=== PATIENT | female | born 1950 | race Caucasian/White ===

== ENCOUNTER 2023-11-24 17:58 | Inpatient (IN) | payer OTHER ==
[2023-11-24 18:24] VITALS: BMI 34.2
[2023-11-24] MEDS ORDERED: ACYCLOVIR 1000 MG (50MG/ML) VIAL IVPB ONE (20:15)
[2023-11-24] MEDS: ACETAMINOPHEN 1000 MG/100 ML BAG IVPB ONE (20:20)
[2023-11-24] MEDS ORDERED: ACETAMINOPHEN INJECTION 100 ML IVPB ONE (20:22)
[2023-11-24 20:43] LABS: VENOUS BASE EXCESS -3.6 mmol/L (-2-2); VENOUS O2 SATURATION 34.1 % (70-80); VENOUS PCO2 35.6 mmHg (38-52); VENOUS PH 7.386 (7.310-7.410)
[2023-11-24] MEDS: PIPERACILLIN/TAZOB 4.5 GM 4.5 GM in DEXTROSE 5%-WATER 100 ML IVPB ONE (20:43)
[2023-11-24] MEDS ORDERED: PIPERACILLIN/TAZOB 4.5 GM 4.5 GM/100 ML BAG IVPB ONE (20:45)
[2023-11-24 20:57] LABS: HEMATOCRIT 33.6 % (32.4-45.2); HEMOGLOBIN 11.4 GM/dL (10.7-15.3); MCH 28.6 pg (25.7-33.7); MCHC 33.8 g/dl (32.0-36.0); MEAN CELL VOLUME 84.5 fl (80-96); MEAN PLT VOLUME 9.8 fl (7.5-11.1); PLATELET COUNT 127 10^3/uL (134-434); RBC 3.98 M/mm3 (3.60-5.2); RDW 15.3 % (11.6-15.6); WHITE BLOOD COUNT 10.2 K/mm3 (4.0-10.0)
[2023-11-24 21:04] LABS: INR 1.27 (0.83-1.09); PROTHROMBIN TIME (PATIENT) 14.7 SEC (9.7-13.0)
[2023-11-24 21:07] LABS: ACTIVATED PTT 30.9 SECONDS (25.2-36.5)
[2023-11-24 21:20] LABS: ALBUMIN 3.2 g/dl (3.4-5.0); BLOOD UREA NITROGEN 73.8 mg/dL (7-18); CALCIUM 8.5 mg/dL (8.5-10.1)
[2023-11-24 21:22] LABS: EPI CELLS 30 /uL (0-25.1); HYALINE CASTS 0 /uL (0-3.1); URINE APPEARANCE TURBID; URINE BACTERIA 2304 /uL (0-1359); URINE BILIRUBIN NEGATIVE (NEGATIVE); URINE COLOR YELLOW; URINE GLUCOSE (UA) TRACE (NEGATIVE); URINE KETONE TRACE (NEGATIVE); URINE LEUK ESTERASE 3+ (NEGATIVE); URINE NITRITE NEGATIVE (NEGATIVE); URINE PROTEIN 3+ (NEGATIVE); URINE RBC 106 /uL (0-23.9); URINE UROBILINOGEN 0.2 mg/dL (0.2-1.0); URINE WBC 10232 /uL (0-25.8)
[2023-11-24 21:23] LABS: CREATININE 2.7 mg/dL (0.55-1.3)
[2023-11-24 21:25] LABS: BILIRUBIN,TOTAL 0.8 mg/dL (0.2-1); TOT PROT 6.7 g/dl (6.4-8.2)
[2023-11-24] MEDS ORDERED: VANCOMYCIN 1 GRAM (PRE-DOCKED) 1,000 MG/250 ML BAG IVPB ONE ×2 (21:26→22:19)
[2023-11-24] MEDS: LACTATED RINGERS SOLUTION 1000 ML INFUS.BAG IV ONE ×2 (22:17→23:58)
[2023-11-24] MEDS: VANCOMYCIN 1,000 MG in DEXTROSE 5%-WATER - 250 ML IVPB ONE (22:17)
[2023-11-24 23:23] LABS: ANISOCYTOSIS 1+; OVALOCYTE 1+
[2023-11-24 23:24] LABS: PLATELET ESTIMATE DECREASED
[2023-11-24] MEDS: Acyclovir Sodium 1,000 MG in SODIUM CHLORIDE 250 ML IVPB ONE (23:58)
[2023-11-25 01:12] LABS: LACTIC ACID 3.5 mmol/L (0.4-2.0)
[2023-11-25] MEDS: ACETAMINOPHEN 1000 MG/100 ML BAG IVPB ONE (01:31)
[2023-11-25] MEDS ORDERED: ACETAMINOPHEN INJECTION 100 ML IVPB ONE ×2 (01:33→10:08)
[2023-11-25] MEDS ORDERED: BACITRACIN 0.9 GM PACKET ONE (03:41)
[2023-11-25] MEDS: oxyCODONE HCL 5 MG TABLET PO ONE (04:28)
[2023-11-25] MEDS: INSULIN ASPART SLIDING SCALE (NOVOLOG) 1 VIAL SQ SCH (04:28)
[2023-11-25] MEDS: INSULIN (LEVEMIR) 100 UNITS/ML UNITS SQ ONE (04:30)
[2023-11-25] MEDS ORDERED: oxyCODONE HCL 5 MG TABLET ONE ×3 (04:35→14:30)
[2023-11-25] MEDS ORDERED: oxyCODONE HCL 5 MG TABLET PO PRN (05:35)
[2023-11-25] MEDS ORDERED: INSULIN ASPART SLIDING SCALE (NOVOLOG) 1 VIAL SQ SCH (07:00)
[2023-11-25 07:16] LABS: HEMATOCRIT 36.7 % (32.4-45.2); HEMOGLOBIN 11.9 GM/dL (10.7-15.3); MCH 27.8 pg (25.7-33.7); MCHC 32.4 g/dl (32.0-36.0); MEAN CELL VOLUME 85.7 fl (80-96); MEAN PLT VOLUME 9.4 fl (7.5-11.1); PLATELET COUNT 105 10^3/uL (134-434); RBC 4.28 M/mm3 (3.60-5.2); RDW 15.2 % (11.6-15.6); WHITE BLOOD COUNT 11.2 K/mm3 (4.0-10.0)
[2023-11-25 07:32] LABS: POTASSIUM 4.2 mmol/L (3.5-5.1)
[2023-11-25 07:38] LABS: CALCIUM 8.6 mg/dL (8.5-10.1)
[2023-11-25 07:39] LABS: BLOOD UREA NITROGEN 72.7 mg/dL (7-18); MAGNESIUM 1.3 mg/dL (1.8-2.4)
[2023-11-25 07:40] LABS: CREATININE 2.6 mg/dL (0.55-1.3)
[2023-11-25 07:41] LABS: TOT PROT 6.6 g/dl (6.4-8.2)
[2023-11-25 07:42] LABS: LACTIC ACID 3.5 mmol/L (0.4-2.0); PHOSPHOROUS 2.2 mg/dL (2.5-4.9)
[2023-11-25 07:47] LABS: N-TERMINAL BNP 6295.6 pg/ml (5-450)
[2023-11-25] MEDS ORDERED: HEPARIN NA (PORCINE) 5,000 UNITS/ML 1ML VIAL ONE (09:25)
[2023-11-25] MEDS ORDERED: CEFTRIAXONE 1 GM/50 ML BAG ONE (09:25)
[2023-11-25] MEDS ORDERED: DULoxetine HCL 30 MG CAPSULE.DR PO ONE (09:25)
[2023-11-25] MEDS: SODIUM CHLORIDE 0.45% 1,000 ML IV SCH (09:43)
[2023-11-25] MEDS: DULoxetine HCL 30 MG CAPSULE.DR PO SCH (09:44)
[2023-11-25] MEDS: CEFTRIAXONE 1 GM in DEXTROSE 5%-WATER - 50 ML IVPB SCH (09:44)
[2023-11-25] MEDS: HEPARIN NA (PORCINE) 5,000 UNITS/ML 1ML VIAL SQ SCH (09:44)
[2023-11-25] MEDS ORDERED: ENOXAPARIN NA (PORCINE) 30 MG/0.3 ML DISP.SYRIN SQ SCH (10:00)
[2023-11-25] MEDS ORDERED: oxyCODONE HCL 10 MG SUSTAINED ACTING TABLET PO SCH (10:00)
[2023-11-25] MEDS ORDERED: ENOXAPARIN NA (PORCINE) 40 MG/0.4 ML DISP.SYRIN SQ SCH (10:00)
[2023-11-25] MEDS: ACETAMINOPHEN 1000 MG/100 ML BAG IVPB PRN (10:39)
[2023-11-25] MEDS: oxyCODONE HCL 5 MG TABLET PO PRN (10:39)
[2023-11-25] MEDS: LOSARTAN 50MG/HCTZ 12.5MG 1 TAB PO SCH (11:00)
[2023-11-25] MEDS ORDERED: MEROPENEM 1 GM VIAL (RESTRICTED TO ID) IVPB ONE (11:05)
[2023-11-25] MEDS: MEROPENEM 1 GM in DEXTROSE 5%-WATER 100 ML IVPB SCH (11:14)
[2023-11-25] MEDS ORDERED: MAGNESIUM SULFATE IN WATER 2 GM/50 ML IVPB IVPB ONE (13:06)
[2023-11-25] MEDS: MAGNESIUM SULF 50% (8.12 MEQ/2 ML-1 GM VIAL) IVPB ONE (13:15)
[2023-11-25] MEDS ORDERED: NAPH,MB-DB/K PH,MBDB POWDER PACKET ONE (14:16)
[2023-11-25] MEDS: NAPH,MB-DB/K PH,MBDB POWDER PACKET PO SCH (14:26)
[2023-11-25] MEDS: MUPIROCIN 2% TOPICAL OINTMENT 22 GM TUBE TP SCH (14:26)
[2023-11-25] MEDS: SODIUM CHLORIDE 1,000 ML IV SCH (14:33)
[2023-11-25] MEDS: POLYETHYLENE GLYCOL (HEALTHYLAX) 3350 17 GM PACKET PO ONE ×2 (17:32→17:33)
[2023-11-25] MEDS: POLYETHYLENE GLYCOL (HEALTHYLAX) 3350 17 GM PACKET PO SCH (21:50)
[2023-11-25] MEDS: GABAPENTIN 400 MG CAPSULE PO SCH (21:51)
[2023-11-25] MEDS: EZETIMIBE 10 MG TABLET (FP) PO SCH (21:51)
[2023-11-25] MEDS: ATORVASTATIN CA 20 MG TABLET (FP) PO SCH (21:51)
[2023-11-25] MEDS: INSULIN (LEVEMIR) 100 UNITS/ML UNITS SQ SCH (21:51)
[2023-11-26] MEDS: HYDROmorphone HCl 2 MG/ML VIAL IVPUSH ONE (00:55)
[2023-11-26 06:50] LABS: BASO % 0.3 % (0-2.0); EOS % 0.6 % (0-4.5); HEMATOCRIT 31.5 % (32.4-45.2); HEMOGLOBIN 10.7 GM/dL (10.7-15.3); INR 1.11 (0.83-1.09); LYMPH % 7.3 % (8-40); MCH 28.2 pg (25.7-33.7); MCHC 33.9 g/dl (32.0-36.0); MEAN CELL VOLUME 83.1 fl (80-96); MEAN PLT VOLUME 10.9 fl (7.5-11.1); MONO % 14.1 % (3.8-10.2); NEUT % 77.7 % (42.8-82.8); PLATELET COUNT 93 10^3/uL (134-434); PROTHROMBIN TIME (PATIENT) 12.9 SEC (9.7-13.0); RBC 3.79 M/mm3 (3.60-5.2); RDW 15.5 % (11.6-15.6); WHITE BLOOD COUNT 11.4 K/mm3 (4.0-10.0)
[2023-11-26 07:14] LABS: POTASSIUM 4.2 mmol/L (3.5-5.1)
[2023-11-26 07:28] LABS: CALCIUM 8.4 mg/dL (8.5-10.1)
[2023-11-26 07:29] LABS: ALBUMIN 2.6 g/dl (3.4-5.0); BLOOD UREA NITROGEN 59.5 mg/dL (7-18); MAGNESIUM 1.5 mg/dL (1.8-2.4)
[2023-11-26 07:30] LABS: CREATININE 1.9 mg/dL (0.55-1.3); PHOSPHOROUS 4.2 mg/dL (2.5-4.9)
[2023-11-26 07:32] LABS: BILIRUBIN,TOTAL 0.6 mg/dL (0.2-1); TOT PROT 6.2 g/dl (6.4-8.2)
[2023-11-26] MEDS: MAGNESIUM SULF 50% (8.12 MEQ/2 ML-1 GM VIAL) IVPB ONE (09:23)
[2023-11-26] MEDS: MAGNESIUM OXIDE 400 MG TABLET (FP) PO SCH (09:23)
[2023-11-26] MEDS: ACETAMINOPHEN 1000 MG/100 ML BAG IVPB SCH (10:59)
[2023-11-26] MEDS ORDERED: INSULIN ASPART SLIDING SCALE (NOVOLOG) 1 VIAL SQ ONE ×2 (11:19→16:57)
[2023-11-26] MEDS: LIDOCAINE 4% PATCH TP SCH (12:38)
[2023-11-26] MEDS: oxyCODONE HCL 5 MG TABLET PO PRN ×2 (14:32→20:36)
[2023-11-26] MEDS: LIDOCAINE PATCH REMOVAL MC SCH (21:55)
[2023-11-27] MEDS ORDERED: ACETAMINOPHEN 500 MG TABLET (FP) PO PRN (06:00)
[2023-11-27 07:15] LABS: HEMOGLOBIN 9.8 GM/dL (10.7-15.3); MCH 28.1 pg (25.7-33.7); MCHC 33.9 g/dl (32.0-36.0); MEAN CELL VOLUME 82.9 fl (80-96); MEAN PLT VOLUME 10.1 fl (7.5-11.1); PLATELET COUNT 85 10^3/uL (134-434); RDW 15.4 % (11.6-15.6); WHITE BLOOD COUNT 8.8 K/mm3 (4.0-10.0)
[2023-11-27 07:30] LABS: POTASSIUM 4.6 mmol/L (3.5-5.1)
[2023-11-27 07:39] LABS: ALBUMIN 2.4 g/dl (3.4-5.0); MAGNESIUM 2.6 mg/dL (1.8-2.4)
[2023-11-27 07:41] LABS: BILIRUBIN,TOTAL 0.5 mg/dL (0.2-1); CREATININE 1.5 mg/dL (0.55-1.3); TOT PROT 5.8 g/dl (6.4-8.2)
[2023-11-27] MEDS: HYDROmorphone HCl 2 MG/ML VIAL IVPUSH ONE (10:23)
[2023-11-27 11:18] LABS: ANISOCYTOSIS 0; HELMET CELLS 0; HOWELL-JOLLY BODIES 0; MACROCYTOSIS 0; OVALOCYTE 0; ROULEAU 0; SICKELED CELLS 0; TARGET CELLS 0; TEAR DROP CELLS 0; TOXIC GRANULATION 0
[2023-11-27] MEDS: ACETAMINOPHEN 500 MG TABLET (FP) PO SCH (11:36)
[2023-11-27] MEDS: CEFTRIAXONE 2 GM in DEXTROSE 5%-WATER 100 ML IVPB SCH (11:36)
[2023-11-27] MEDS: oxyCODONE HCL 5 MG TABLET PO PRN ×2 (13:11→21:53)
[2023-11-27] MEDS: GABAPENTIN 400 MG CAPSULE PO SCH (13:11)
[2023-11-28] MEDS ORDERED: INSULIN (LEVEMIR) 100 UNITS/ML UNITS SQ ONE (07:02)
[2023-11-28 07:47] LABS: HEMATOCRIT 31.1 % (32.4-45.2); HEMOGLOBIN 10.4 GM/dL (10.7-15.3); MCH 28.2 pg (25.7-33.7); MCHC 33.4 g/dl (32.0-36.0); MEAN CELL VOLUME 84.4 fl (80-96); MEAN PLT VOLUME 10.3 fl (7.5-11.1); PLATELET COUNT 118 10^3/uL (134-434); RBC 3.68 M/mm3 (3.60-5.2); RDW 15.5 % (11.6-15.6); WHITE BLOOD COUNT 9.7 K/mm3 (4.0-10.0)
[2023-11-28 07:57] LABS: POTASSIUM 4.7 mmol/L (3.5-5.1)
[2023-11-28 08:06] LABS: ALBUMIN 2.4 g/dl (3.4-5.0); BLOOD UREA NITROGEN 47.1 mg/dL (7-18); CALCIUM 8.8 mg/dL (8.5-10.1); MAGNESIUM 2.2 mg/dL (1.8-2.4)
[2023-11-28 08:08] LABS: CREATININE 1.2 mg/dL (0.55-1.3)
[2023-11-28 08:10] LABS: BILIRUBIN,TOTAL 0.5 mg/dL (0.2-1); TOT PROT 6.1 g/dl (6.4-8.2)
[2023-11-28 09:04] LABS: ANISOCYTOSIS 0; MACROCYTOSIS 0
[2023-11-29 06:48] LABS: HEMATOCRIT 31.3 % (32.4-45.2); HEMOGLOBIN 10.4 GM/dL (10.7-15.3); MCH 28.1 pg (25.7-33.7); MCHC 33.1 g/dl (32.0-36.0); MEAN CELL VOLUME 84.9 fl (80-96); MEAN PLT VOLUME 10.2 fl (7.5-11.1); PLATELET COUNT 172 10^3/uL (134-434); RBC 3.69 M/mm3 (3.60-5.2); RDW 15.6 % (11.6-15.6); WHITE BLOOD COUNT 10.1 K/mm3 (4.0-10.0)
[2023-11-29 07:13] LABS: ALBUMIN 2.3 g/dl (3.4-5.0); BLOOD UREA NITROGEN 47.6 mg/dL (7-18); CALCIUM 8.2 mg/dL (8.5-10.1); MAGNESIUM 1.8 mg/dL (1.8-2.4)
[2023-11-29 07:16] LABS: CREATININE 1.4 mg/dL (0.55-1.3)
[2023-11-29 07:18] LABS: BILIRUBIN,TOTAL 0.5 mg/dL (0.2-1); TOT PROT 6.1 g/dl (6.4-8.2)
[2023-11-29 09:03] LABS: ANISOCYTOSIS 0; MACROCYTOSIS 0
[2023-11-29] MEDS: ACETAMINOPHEN 325 MG TABLET (FP) PO PRN (13:18)
[2023-11-29 15:49] LABS: ARTERIAL BLD GAS O2 SATURATION 94.6 % (95-98); ARTERIAL BLOOD GAS PO2 70.9 mmHg (80-100); ARTERIAL BLOOD GAS pH 7.426 (7.350-7.450)
[2023-11-29 15:50] LABS: ALLENS TEST POSITIVE
[2023-11-29] MEDS: MEROPENEM 2 GM in DEXTROSE 5%-WATER - 100 ML IVPB SCH (16:00)
[2023-11-29 16:05] LABS: INR 1.12 (0.83-1.09)
[2023-11-29 16:12] LABS: HEMATOCRIT 30.6 % (32.4-45.2); HEMOGLOBIN 10.3 GM/dL (10.7-15.3); MCH 28.3 pg (25.7-33.7); MCHC 33.6 g/dl (32.0-36.0); MEAN CELL VOLUME 84.3 fl (80-96); MEAN PLT VOLUME 9.6 fl (7.5-11.1); PLATELET COUNT 197 10^3/uL (134-434); RBC 3.63 M/mm3 (3.60-5.2); RDW 15.8 % (11.6-15.6)
[2023-11-29 16:24] LABS: POTASSIUM 5.3 mmol/L (3.5-5.1)
[2023-11-29 16:25] LABS: CALCIUM 8.6 mg/dL (8.5-10.1)
[2023-11-29 16:26] LABS: ALBUMIN 2.3 g/dl (3.4-5.0); BLOOD UREA NITROGEN 55.2 mg/dL (7-18)
[2023-11-29 16:30] LABS: CREATININE 1.7 mg/dL (0.55-1.3)
[2023-11-29 16:31] LABS: BILIRUBIN,TOTAL 0.4 mg/dL (0.2-1); TOT PROT 6.4 g/dl (6.4-8.2)
[2023-11-29] MEDS: CYCLOBENZAPRINE HCL 10 MG TABLET (FP) PO ONE (17:24)
[2023-11-29 17:36] LABS: ANISOCYTOSIS 1+; MACROCYTOSIS 0; PLATELET ESTIMATE NORMAL
[2023-11-29] MEDS ORDERED: INSULIN (NOVOLOG) ASPART 100 UNITS/ML 10ML VIAL ONE (18:03)
[2023-11-29] MEDS: MUPIROCIN 2% TOPICAL OINTMENT FOR DECOLONIZATION NS SCH (21:53)
[2023-11-29] MEDS: CHLORHEXIDINE GLUCONATE 4% CLEANSER FOR DECOLONIZATION TP SCH (21:54)
[2023-11-30] MEDS ORDERED: ACETAMINOPHEN 325 MG TABLET (FP) PO PRN (01:44)
[2023-11-30] MEDS ORDERED: oxyCODONE HCL 5 MG TABLET PO PRN (01:44)
[2023-11-30] MEDS: LIDOCAINE PATCH REMOVAL MC SCH (02:48)
[2023-11-30] MEDS: oxyCODONE HCL 5 MG TABLET PO PRN ×3 (05:30→22:25)
[2023-11-30] MEDS: GABAPENTIN 400 MG CAPSULE PO SCH (06:40)
[2023-11-30] MEDS: MUPIROCIN 2% TOPICAL OINTMENT 22 GM TUBE TP SCH (06:40)
[2023-11-30] MEDS: INSULIN ASPART SLIDING SCALE (NOVOLOG) 1 VIAL SQ SCH ×2 (06:41→16:48)
[2023-11-30 07:42] LABS: HEMATOCRIT 31.3 % (32.4-45.2); HEMOGLOBIN 10.2 GM/dL (10.7-15.3); MCH 27.8 pg (25.7-33.7); MCHC 32.5 g/dl (32.0-36.0); MEAN CELL VOLUME 85.6 fl (80-96); MEAN PLT VOLUME 9.5 fl (7.5-11.1); PLATELET COUNT 255 10^3/uL (134-434); RBC 3.66 M/mm3 (3.60-5.2); RDW 15.6 % (11.6-15.6); WHITE BLOOD COUNT 12.4 K/mm3 (4.0-10.0)
[2023-11-30 07:56] LABS: ALBUMIN 2.2 g/dl (3.4-5.0); BLOOD UREA NITROGEN 54.7 mg/dL (7-18); MAGNESIUM 2.1 mg/dL (1.8-2.4)
[2023-11-30 08:00] LABS: CREATININE 1.5 mg/dL (0.55-1.3)
[2023-11-30 08:02] LABS: BILIRUBIN,TOTAL 0.5 mg/dL (0.2-1); TOT PROT 6.4 g/dl (6.4-8.2)
[2023-11-30 09:16] LABS: ANISOCYTOSIS 1+; MACROCYTOSIS 0
[2023-11-30] MEDS: MUPIROCIN 2% TOPICAL OINTMENT FOR DECOLONIZATION NS SCH (10:00)
[2023-11-30] MEDS: DULoxetine HCL 30 MG CAPSULE.DR PO SCH ×2 (10:00→22:02)
[2023-11-30] MEDS: LIDOCAINE 4% PATCH TP SCH (10:00)
[2023-11-30] MEDS: POLYETHYLENE GLYCOL (HEALTHYLAX) 3350 17 GM PACKET PO SCH ×2 (10:00→22:02)
[2023-11-30] MEDS: HEPARIN NA (PORCINE) 5,000 UNITS/ML 1ML VIAL SQ SCH ×2 (10:00→22:02)
[2023-11-30] MEDS: PIPERACILLIN/TAZOB 4.5 GM 4.5 GM in DEXTROSE 5%-WATER 100 ML IVPB SCH (14:25)
[2023-11-30] MEDS ORDERED: HYDROCHLOROTHIAZIDE 25 MG TABLET (FP) PO SCH (15:30)
[2023-11-30] MEDS: amLODIPine BESYLATE 5 MG TABLET (FP) PO SCH (15:47)
[2023-11-30] MEDS: ACETAMINOPHEN 325 MG TABLET (FP) PO PRN (18:28)
[2023-11-30] MEDS ORDERED: ATORVASTATIN CA 20 MG TABLET (FP) PO SCH (22:00)
[2023-11-30] MEDS ORDERED: INSULIN (LEVEMIR) 100 UNITS/ML UNITS SQ SCH (22:00)
[2023-11-30] MEDS ORDERED: GABAPENTIN 400 MG CAPSULE PO SCH (22:00)
[2023-11-30] MEDS ORDERED: CHLORHEXIDINE GLUCONATE 4% CLEANSER FOR DECOLONIZATION TP SCH ×2 (22:00)
[2023-11-30] MEDS ORDERED: EZETIMIBE 10 MG TABLET (FP) PO SCH (22:00)
[2023-11-30] MEDS ORDERED: MUPIROCIN 2% TOPICAL OINTMENT FOR DECOLONIZATION NS SCH (22:00)
[2023-11-30] MEDS ORDERED: LIDOCAINE PATCH REMOVAL MC SCH ×2 (22:00)
[2023-11-30] MEDS: EZETIMIBE 10 MG TABLET (FP) PO SCH (22:03)
[2023-11-30] MEDS: ATORVASTATIN CA 20 MG TABLET (FP) PO SCH (22:03)
[2023-11-30] MEDS: INSULIN (LEVEMIR) 100 UNITS/ML UNITS SQ SCH (22:03)
[2023-12-01] MEDS: MUPIROCIN 2% TOPICAL OINTMENT 22 GM TUBE TP SCH (02:54)
[2023-12-01] MEDS: LIDOCAINE PATCH REMOVAL MC SCH (02:54)
[2023-12-01] MEDS: CYCLOBENZAPRINE HCL 5 MG TABLET PO SCH (05:53)
[2023-12-01] MEDS: LIDOCAINE 4% PATCH TP SCH (09:58)
[2023-12-01 12:10] LABS: CHLORIDE 91 mmol/L (98-107); SODIUM 129 mmol/L (136-145)
[2023-12-01 12:16] LABS: ANION GAP 8 mmol/L (4-13); CALCIUM 8.9 mg/dL (8.5-10.1); CO2 30 mmol/L (21-32)
[2023-12-01 12:17] LABS: ALBUMIN 2.1 g/dl (3.4-5.0); BLOOD UREA NITROGEN 41.8 mg/dL (7-18); MAGNESIUM 1.9 mg/dL (1.8-2.4); PHOSPHOROUS 3.7 mg/dL (2.5-4.9); SGPT/ALT 32 U/L (13-61)
[2023-12-01 12:19] LABS: BILIRUBIN,TOTAL 0.6 mg/dL (0.2-1); TOT PROT 6.3 g/dl (6.4-8.2)
[2023-12-01 12:20] LABS: ALK PHOS 44 U/L (45-117); CREATININE 1.4 mg/dL (0.55-1.3); SGOT/AST 19 U/L (15-37)
[2023-12-01 12:27] LABS: GLUCOSE,RANDOM 427 mg/dL (74-106)
[2023-12-01 12:36] LABS: HEMATOCRIT 29.2 % (32.4-45.2); HEMOGLOBIN 9.9 GM/dL (10.7-15.3); MCH 28.6 pg (25.7-33.7); MCHC 33.8 g/dl (32.0-36.0); MEAN CELL VOLUME 84.6 fl (80-96); MEAN PLT VOLUME 9.2 fl (7.5-11.1); PLATELET COUNT 286 10^3/uL (134-434); RBC 3.45 M/mm3 (3.60-5.2); RDW 15.8 % (11.6-15.6); WHITE BLOOD COUNT 10.1 K/mm3 (4.0-10.0)
[2023-12-01 13:06] LABS: ANISOCYTOSIS 2+; MACROCYTOSIS 0
[2023-12-01] MEDS: INSULIN (LEVEMIR) 100 UNITS/ML UNITS SQ SCH (21:27)
[2023-12-01] MEDS: ASCORBIC ACID 500 MG TABLET (FP) PO SCH (21:28)
[2023-12-01] MEDS: INSULIN ASPART SLIDING SCALE (NOVOLOG) 1 VIAL SQ SCH (21:31)
[2023-12-02] MEDS: MULTIVITAMINS (DAILY MVI) TABLET (FP) PO SCH (09:35)
[2023-12-02 10:23] LABS: HEMATOCRIT 30.7 % (32.4-45.2); HEMOGLOBIN 10.4 GM/dL (10.7-15.3); MCH 28.3 pg (25.7-33.7); MCHC 33.9 g/dl (32.0-36.0); MEAN CELL VOLUME 83.4 fl (80-96); MEAN PLT VOLUME 8.7 fl (7.5-11.1); PLATELET COUNT 385 10^3/uL (134-434); RBC 3.67 M/mm3 (3.60-5.2); RDW 15.6 % (11.6-15.6); WHITE BLOOD COUNT 10.8 K/mm3 (4.0-10.0)
[2023-12-02 10:44] LABS: POTASSIUM 4.7 mmol/L (3.5-5.1)
[2023-12-02 10:50] LABS: CALCIUM 9.5 mg/dL (8.5-10.1)
[2023-12-02 10:51] LABS: ALBUMIN 2.3 g/dl (3.4-5.0); BLOOD UREA NITROGEN 33.4 mg/dL (7-18); MAGNESIUM 1.9 mg/dL (1.8-2.4)
[2023-12-02 10:53] LABS: CREATININE 1.3 mg/dL (0.55-1.3)
[2023-12-02 10:54] LABS: BILIRUBIN,TOTAL 0.7 mg/dL (0.2-1); TOT PROT 6.9 g/dl (6.4-8.2)
[2023-12-02 11:37] LABS: ANISOCYTOSIS 0; MACROCYTOSIS 0
[2023-12-03 08:53] LABS: BASO % 0.5 % (0-2.0); HEMATOCRIT 31.7 % (32.4-45.2); HEMOGLOBIN 10.6 GM/dL (10.7-15.3); LYMPH % 14.4 % (8-40); MCH 28.1 pg (25.7-33.7); MCHC 33.6 g/dl (32.0-36.0); MEAN CELL VOLUME 83.8 fl (80-96); MEAN PLT VOLUME 8.8 fl (7.5-11.1); MONO % 12.8 % (3.8-10.2); NEUT % 71.3 % (42.8-82.8); PLATELET COUNT 431 10^3/uL (134-434); RBC 3.78 M/mm3 (3.60-5.2); RDW 15.2 % (11.6-15.6); WHITE BLOOD COUNT 12.3 K/mm3 (4.0-10.0)
[2023-12-03 09:15] LABS: POTASSIUM 4.6 mmol/L (3.5-5.1)
[2023-12-03 09:17] LABS: ALBUMIN 2.2 g/dl (3.4-5.0); BLOOD UREA NITROGEN 25.5 mg/dL (7-18); CALCIUM 9.1 mg/dL (8.5-10.1); MAGNESIUM 1.6 mg/dL (1.8-2.4)
[2023-12-03 09:20] LABS: CREATININE 1.2 mg/dL (0.55-1.3)
[2023-12-03 09:22] LABS: BILIRUBIN,TOTAL 0.8 mg/dL (0.2-1); TOT PROT 7.1 g/dl (6.4-8.2)
[2023-12-03] MEDS: MAGNESIUM OXIDE 400 MG TABLET (FP) PO ONE (11:57)
[2023-12-03] MEDS: LIDOCAINE 4% PATCH TP ONE (12:07)
[2023-12-03] MEDS: INSULIN ASPART SLIDING SCALE (NOVOLOG) 1 VIAL SQ SCH (17:16)
[2023-12-04] MEDS: LIDOCAINE PATCH REMOVAL MC ONE (06:15)
[2023-12-04 09:57] LABS: BASO % 0.6 % (0-2.0); EOS % 0.6 % (0-4.5); HEMATOCRIT 30.5 % (32.4-45.2); HEMOGLOBIN 10.2 GM/dL (10.7-15.3); LYMPH % 12.1 % (8-40); MCH 28.2 pg (25.7-33.7); MCHC 33.5 g/dl (32.0-36.0); MEAN CELL VOLUME 84.1 fl (80-96); MEAN PLT VOLUME 8.8 fl (7.5-11.1); MONO % 9.7 % (3.8-10.2); PLATELET COUNT 455 10^3/uL (134-434); RBC 3.62 M/mm3 (3.60-5.2); RDW 15.6 % (11.6-15.6); WHITE BLOOD COUNT 15.1 K/mm3 (4.0-10.0)
[2023-12-04 10:13] LABS: POTASSIUM 4.3 mmol/L (3.5-5.1)
[2023-12-04 10:26] LABS: CALCIUM 9.4 mg/dL (8.5-10.1)
[2023-12-04 10:27] LABS: ALBUMIN 2.2 g/dl (3.4-5.0); MAGNESIUM 1.7 mg/dL (1.8-2.4)
[2023-12-04 10:28] LABS: BLOOD UREA NITROGEN 30.7 mg/dL (7-18)
[2023-12-04 10:30] LABS: CREATININE 1.2 mg/dL (0.55-1.3)
[2023-12-04 10:32] LABS: BILIRUBIN,TOTAL 0.6 mg/dL (0.2-1); TOT PROT 6.9 g/dl (6.4-8.2)
[2023-12-04] MEDS: NYSTATIN 500,000 UNITS/5 ML SUSPENSION PO SCH (17:11)
[2023-12-05] MEDS: TAMSULOSIN HCL 0.4 MG CAP PO ONE (09:15)
[2023-12-05 09:25] LABS: POTASSIUM 4.6 mmol/L (3.5-5.1)
[2023-12-05 09:36] LABS: BASO % 0.5 % (0-2.0); EOS % 1.1 % (0-4.5); HEMATOCRIT 31.9 % (32.4-45.2); HEMOGLOBIN 10.1 GM/dL (10.7-15.3); LYMPH % 11.4 % (8-40); MCHC 31.7 g/dl (32.0-36.0); MEAN PLT VOLUME 9.2 fl (7.5-11.1); PLATELET COUNT 474 10^3/uL (134-434); RBC 3.75 M/mm3 (3.60-5.2); RDW 15.3 % (11.6-15.6); WHITE BLOOD COUNT 14.6 K/mm3 (4.0-10.0)
[2023-12-05 09:39] LABS: ALBUMIN 2.3 g/dl (3.4-5.0); MAGNESIUM 1.9 mg/dL (1.8-2.4)
[2023-12-05 09:40] LABS: BLOOD UREA NITROGEN 36.7 mg/dL (7-18)
[2023-12-05 09:42] LABS: CREATININE 1.4 mg/dL (0.55-1.3)
[2023-12-05 09:44] LABS: BILIRUBIN,TOTAL 0.7 mg/dL (0.2-1)
[2023-12-06 08:46] LABS: BASO % 0.8 % (0-2.0); HEMATOCRIT 28.3 % (32.4-45.2); HEMOGLOBIN 9.7 GM/dL (10.7-15.3); LYMPH % 12.2 % (8-40); MCH 28.8 pg (25.7-33.7); MCHC 34.4 g/dl (32.0-36.0); MEAN CELL VOLUME 83.9 fl (80-96); MEAN PLT VOLUME 8.8 fl (7.5-11.1); MONO % 10.3 % (3.8-10.2); NEUT % 75.7 % (42.8-82.8); PLATELET COUNT 397 10^3/uL (134-434); RBC 3.37 M/mm3 (3.60-5.2); RDW 15.6 % (11.6-15.6); WHITE BLOOD COUNT 12.2 K/mm3 (4.0-10.0)
[2023-12-06 09:12] LABS: POTASSIUM 4.5 mmol/L (3.5-5.1)
[2023-12-06 09:19] LABS: CALCIUM 8.6 mg/dL (8.5-10.1)
[2023-12-06 09:20] LABS: ALBUMIN 2.3 g/dl (3.4-5.0); BLOOD UREA NITROGEN 45.7 mg/dL (7-18); MAGNESIUM 2.1 mg/dL (1.8-2.4)
[2023-12-06 09:23] LABS: CREATININE 1.6 mg/dL (0.55-1.3)
[2023-12-06 09:25] LABS: BILIRUBIN,TOTAL 0.7 mg/dL (0.2-1); TOT PROT 6.8 g/dl (6.4-8.2)
[2023-12-06] MEDS: METHYL SALICYLATE/MENTHOL OINT 30 GM TUBE TP SCH (11:29)
[2023-12-07 09:28] LABS: BASO % 0.8 % (0-2.0); EOS % 1.2 % (0-4.5); HEMATOCRIT 26.7 % (32.4-45.2); HEMOGLOBIN 8.8 GM/dL (10.7-15.3); LYMPH % 13.2 % (8-40); MCH 28.1 pg (25.7-33.7); MCHC 33.1 g/dl (32.0-36.0); MEAN CELL VOLUME 84.9 fl (80-96); MEAN PLT VOLUME 9.3 fl (7.5-11.1); MONO % 10.1 % (3.8-10.2); NEUT % 74.7 % (42.8-82.8); PLATELET COUNT 387 10^3/uL (134-434); RBC 3.14 M/mm3 (3.60-5.2); RDW 15.1 % (11.6-15.6); WHITE BLOOD COUNT 10.9 K/mm3 (4.0-10.0)
[2023-12-07 09:55] LABS: CHLORIDE 92 mmol/L (98-107); POTASSIUM 4.8 mmol/L (3.5-5.1); SODIUM 128 mmol/L (136-145)
[2023-12-07 10:14] LABS: ANION GAP 10 mmol/L (4-13); CO2 26 mmol/L (21-32); GLUCOSE,RANDOM 251 mg/dL (74-106)
[2023-12-07 10:15] LABS: ALBUMIN 2.3 g/dl (3.4-5.0); BLOOD UREA NITROGEN 47.2 mg/dL (7-18); MAGNESIUM 2.1 mg/dL (1.8-2.4)
[2023-12-07 10:17] LABS: SGPT/ALT 30 U/L (13-61)
[2023-12-07 10:18] LABS: CREATININE 1.4 mg/dL (0.55-1.3); SGOT/AST 15 U/L (15-37)
[2023-12-07 10:19] LABS: BILIRUBIN,TOTAL 0.6 mg/dL (0.2-1); TOT PROT 6.9 g/dl (6.4-8.2)
[2023-12-07 10:20] LABS: ALK PHOS 49 U/L (45-117)
[2023-12-07] MEDS: HYDROmorphone HCL 2 MG TABLET PO ONE (12:26)
[2023-12-07] MEDS: ACETAMINOPHEN 500 MG TABLET (FP) PO SCH (12:27)
[2023-12-07] MEDS: HYDROmorphone HCL 2 MG TABLET PO PRN ×2 (18:36→23:40)
[2023-12-08 10:08] LABS: POTASSIUM 4.7 mmol/L (3.5-5.1)
[2023-12-08 10:20] LABS: CALCIUM 9.3 mg/dL (8.5-10.1)
[2023-12-08 10:21] LABS: ALBUMIN 2.3 g/dl (3.4-5.0)
[2023-12-08 10:24] LABS: CREATININE 1.3 mg/dL (0.55-1.3)
[2023-12-08 10:26] LABS: BILIRUBIN,TOTAL 0.4 mg/dL (0.2-1); TOT PROT 7.1 g/dl (6.4-8.2)
[2023-12-08 10:36] VITALS: RESP 18
[2023-12-08 10:44] LABS: BLOOD UREA NITROGEN 44.9 mg/dL (7-18)
[2023-12-08] MEDS: SODIUM CHLORIDE 1,000 ML IV SCH (15:45)
[2023-12-09 08:38] LABS: BASO % 1.2 % (0-2.0); EOS % 1.1 % (0-4.5); HEMATOCRIT 25.4 % (32.4-45.2); HEMOGLOBIN 8.3 GM/dL (10.7-15.3); LYMPH % 18.1 % (8-40); MCH 27.9 pg (25.7-33.7); MCHC 32.8 g/dl (32.0-36.0); MEAN PLT VOLUME 9.3 fl (7.5-11.1); NEUT % 69.6 % (42.8-82.8); PLATELET COUNT 407 10^3/uL (134-434); RBC 2.98 M/mm3 (3.60-5.2); RDW 15.1 % (11.6-15.6); WHITE BLOOD COUNT 9.3 K/mm3 (4.0-10.0)
[2023-12-09 09:36] LABS: POTASSIUM 4.4 mmol/L (3.5-5.1)
[2023-12-09 09:43] LABS: CALCIUM 9.2 mg/dL (8.5-10.1)
[2023-12-09 09:44] LABS: ALBUMIN 2.3 g/dl (3.4-5.0); BLOOD UREA NITROGEN 42.5 mg/dL (7-18); MAGNESIUM 1.9 mg/dL (1.8-2.4)
[2023-12-09 09:47] LABS: CREATININE 1.2 mg/dL (0.55-1.3)
[2023-12-09 09:48] LABS: BILIRUBIN,TOTAL 0.4 mg/dL (0.2-1); TOT PROT 6.8 g/dl (6.4-8.2)
[2023-12-11 08:08] VITALS: BP 149/76; PULSE 100; TEMP 98.2
[2023-12-11 08:25] LABS: BASO % 1.2 % (0-2.0); EOS % 1.6 % (0-4.5); HEMATOCRIT 25.9 % (32.4-45.2); HEMOGLOBIN 8.5 GM/dL (10.7-15.3); LYMPH % 22.3 % (8-40); MCHC 32.6 g/dl (32.0-36.0); MEAN CELL VOLUME 85.9 fl (80-96); MEAN PLT VOLUME 8.9 fl (7.5-11.1); NEUT % 63.9 % (42.8-82.8); PLATELET COUNT 375 10^3/uL (134-434); RBC 3.02 M/mm3 (3.60-5.2); RDW 15.4 % (11.6-15.6); WHITE BLOOD COUNT 8.5 K/mm3 (4.0-10.0)
[2023-12-11 09:12] LABS: CALCIUM 9.5 mg/dL (8.5-10.1)
[2023-12-11 09:13] LABS: ALBUMIN 2.4 g/dl (3.4-5.0); BLOOD UREA NITROGEN 26.9 mg/dL (7-18); POTASSIUM 4.3 mmol/L (3.5-5.1)
[2023-12-11 09:16] LABS: CREATININE 0.9 mg/dL (0.55-1.3)
[2023-12-11 09:17] LABS: BILIRUBIN,TOTAL 0.3 mg/dL (0.2-1); TOT PROT 6.9 g/dl (6.4-8.2)
== END 2023-12-11 15:02 | DRG 871 ==
LOC: JER 17:58 → JERBED 23:28 → J4S 11-25 15:27 → JICU 11-29 17:02 → J5S 11-30 16:15
PROVIDERS: ADMIT Internal Medicine; ATTEND Internal Medicine
DX: A41.51 Sepsis due to Escherichia coli [E. coli] (principal); G93.41 Metabolic encephalopathy; J69.0 Pneumonitis due to inhalation of food and vomit; N39.0 Urinary tract infection, site not specified; E87.1 Hypo-osmolality and hyponatremia; N17.9 Acute kidney failure, unspecified; M62.82 Rhabdomyolysis; J98.11 Atelectasis; N12 Tubulo-interstitial nephritis, not specified as acute or chronic; I10 Essential (primary) hypertension; E11.65 Type 2 diabetes mellitus with hyperglycemia; E78.5 Hyperlipidemia, unspecified; I13.10 Hypertensive heart and chronic kidney disease without heart failure, with stage 1 through stage 4 chronic kidney disease, or unspecified chronic kidney disease; E66.9 Obesity, unspecified; Z68.34 Body mass index [BMI] 34.0-34.9, adult; N18.9 Chronic kidney disease, unspecified; B96.20 Unspecified Escherichia coli [E. coli] as the cause of diseases classified elsewhere; R74.01 Elevation of levels of liver transaminase levels; K59.00 Constipation, unspecified
CPT/HCPCS: 0241U-QW; 36415; 36600; 70450-TC; 70490-TC; 71045-TC-FY; 71250-TC; 72126-TC; 72127-TC; 72129-TC; 72130-TC; 72131-TC; 74176-TC; 76700-TC; 80053; 81003; 82436; 82550; 82553; 82803; 82962; 83036; 83605; 83735; 83880; 83930; 83935; 84100; 84133; 84300; 84443; 84484; 85025; 85027; 85610; 85730; 86140; 86850; 86900; 86901; 87040; 87086; 87186; 87635; 93005; 93010; 93306-TC; 94010; 97116-GP; 97161-GP; 99291; G0480; J0131; J1644; Q9967

== ENCOUNTER 2023-12-18 13:07 | Inpatient (IN) | payer OTHER ==
[2023-12-18] MEDS ORDERED: CYCLOBENZAPRINE HCL 5 MG TABLET ONE (15:01)
[2023-12-18] MEDS: CYCLOBENZAPRINE HCL 5 MG TABLET PO ONE (15:26)
[2023-12-18 15:42] LABS: BASO % 0.9 % (0-2.0); EOS % 3.2 % (0-4.5); HEMATOCRIT 28.6 % (32.4-45.2); HEMOGLOBIN 9.4 GM/dL (10.7-15.3); LYMPH % 21.1 % (8-40); MCH 28.3 pg (25.7-33.7); MCHC 32.8 g/dl (32.0-36.0); MEAN CELL VOLUME 86.2 fl (80-96); MEAN PLT VOLUME 8.9 fl (7.5-11.1); MONO % 9.9 % (3.8-10.2); NEUT % 64.9 % (42.8-82.8); PLATELET COUNT 298 10^3/uL (134-434); RBC 3.32 M/mm3 (3.60-5.2); RDW 16.2 % (11.6-15.6); WHITE BLOOD COUNT 8.7 K/mm3 (4.0-10.0)
[2023-12-18 16:01] LABS: POTASSIUM 4.6 mmol/L (3.5-5.1)
[2023-12-18 16:06] LABS: ALBUMIN 2.7 g/dl (3.4-5.0); BLOOD UREA NITROGEN 25.2 mg/dL (7-18); CALCIUM 9.7 mg/dL (8.5-10.1)
[2023-12-18 16:11] LABS: BILIRUBIN,TOTAL 0.4 mg/dL (0.2-1); TOT PROT 7.5 g/dl (6.4-8.2)
[2023-12-18 17:06] LABS: ERYTHROCYTE SEDIMENTATION RATE 105 mm/hr (0-30)
[2023-12-18] MEDS ORDERED: morphine SULFATE 4 MG/ML VIAL ONE (17:28)
[2023-12-18] MEDS: morphine CARPU-JECT 4 MG/1 ML DISP.SYRIN IVPUSH ONE (17:35)
[2023-12-18] MEDS: SODIUM CHLORIDE 0.9% 500 ML INFUS.BAG IV ONE (17:36)
[2023-12-18 18:48] VITALS: BMI 32.5
[2023-12-18] MEDS ORDERED: INSULIN ASPART SLIDING SCALE (NOVOLOG) 1 VIAL SQ ONE (18:58)
[2023-12-18] MEDS: ACETAMINOPHEN 325 MG TABLET (FP) PO PRN (19:00)
[2023-12-18] MEDS: POLYETHYLENE GLYCOL (HEALTHYLAX) 3350 17 GM PACKET PO SCH (21:37)
[2023-12-18] MEDS: EZETIMIBE 10 MG TABLET (FP) PO SCH (21:38)
[2023-12-18] MEDS: CYCLOBENZAPRINE HCL 5 MG TABLET PO SCH (21:38)
[2023-12-18] MEDS: ATORVASTATIN CA 20 MG TABLET (FP) PO SCH (21:38)
[2023-12-18] MEDS: GABAPENTIN 300 MG CAPSULE PO SCH (21:38)
[2023-12-18] MEDS: DULoxetine HCL 30 MG CAPSULE.DR PO SCH (21:38)
[2023-12-18] MEDS: HEPARIN NA (PORCINE) 5,000 UNITS/ML 1ML VIAL SQ SCH (21:39)
[2023-12-18] MEDS: INSULIN (LEVEMIR) 100 UNITS/ML UNITS SQ SCH (21:40)
[2023-12-18] MEDS: INSULIN ASPART SLIDING SCALE (NOVOLOG) 1 VIAL SQ SCH (21:55)
[2023-12-18] MEDS ORDERED: PATIENT'S OWN MEDICATION (NON-FORMULARY) (Lidocaine Patch Removal 1 EACH Each) MC SCH (22:00)
[2023-12-18] MEDS: LIDOCAINE PATCH REMOVAL MC SCH (22:02)
[2023-12-18] MEDS: METHYL SALICYLATE/MENTHOL OINT 30 GM TUBE TP SCH (22:18)
[2023-12-18] MEDS: morphine SULFATE 4 MG/ML VIAL IVPUSH PRN (23:28)
[2023-12-19 08:52] LABS: BASO % 0.8 % (0-2.0); EOS % 4.7 % (0-4.5); HEMATOCRIT 27.6 % (32.4-45.2); HEMOGLOBIN 9.1 GM/dL (10.7-15.3); LYMPH % 18.9 % (8-40); MCH 28.1 pg (25.7-33.7); MCHC 32.9 g/dl (32.0-36.0); MEAN CELL VOLUME 85.6 fl (80-96); MEAN PLT VOLUME 8.9 fl (7.5-11.1); MONO % 8.1 % (3.8-10.2); NEUT % 67.5 % (42.8-82.8); PLATELET COUNT 278 10^3/uL (134-434); RBC 3.22 M/mm3 (3.60-5.2); RDW 15.8 % (11.6-15.6); WHITE BLOOD COUNT 8.4 K/mm3 (4.0-10.0)
[2023-12-19] MEDS: LIDOCAINE 4% PATCH TP SCH (09:16)
[2023-12-19] MEDS: amLODIPine BESYLATE 5 MG TABLET (FP) PO SCH (09:16)
[2023-12-19 09:18] LABS: POTASSIUM 4.2 mmol/L (3.5-5.1)
[2023-12-19 09:23] LABS: CALCIUM 9.6 mg/dL (8.5-10.1)
[2023-12-19 09:24] LABS: ALBUMIN 2.5 g/dl (3.4-5.0); BLOOD UREA NITROGEN 23.1 mg/dL (7-18)
[2023-12-19 09:27] LABS: CREATININE 0.9 mg/dL (0.55-1.3)
[2023-12-19 09:28] LABS: BILIRUBIN,TOTAL 0.3 mg/dL (0.2-1)
[2023-12-19] MEDS ORDERED: CYCLOBENZAPRINE HCL 5 MG TABLET PO ONE (14:45)
[2023-12-19] MEDS: IRON SUCROSE INJECTION 200 MG in SODIUM CHLORIDE 100 ML IVPB ONE ×2 (18:47→20:30)
[2023-12-20] MEDS: fentaNYL 12mcg/hr PATCH.TD72 TD SCH (16:57)
[2023-12-20] MEDS: METHOCARBAMOL 500 MG TABLET PO SCH (21:33)
[2023-12-22 06:00] LABS: EPI CELLS 5 /uL (0-25.1); HYALINE CASTS 0 /uL (0-3.1); URINE APPEARANCE TURBID; URINE BILIRUBIN NEGATIVE (NEGATIVE); URINE COLOR YELLOW; URINE GLUCOSE (UA) NEGATIVE (NEGATIVE); URINE KETONE NEGATIVE (NEGATIVE); URINE LEUK ESTERASE 3+ (NEGATIVE); URINE NITRITE NEGATIVE (NEGATIVE); URINE PROTEIN TRACE (NEGATIVE); URINE UROBILINOGEN 0.2 mg/dL (0.2-1.0); URINE WBC 306 /uL (0-25.8)
[2023-12-22 08:44] LABS: URINE BACTERIA 9703.1 /uL (0-1359); YEAST NONE SEEN (NEGATIVE)
[2023-12-22] MEDS ORDERED: CEFTRIAXONE 1 GM in DEXTROSE 5%-WATER - 50 ML IVPB SCH (14:30)
[2023-12-22] MEDS: CEFTRIAXONE 1 GM in DEXTROSE 5%-WATER - 50 ML IVPB ONE (17:24)
[2023-12-22] MEDS: INSULIN (LEVEMIR) 100 UNITS/ML UNITS SQ SCH ×2 (18:54→22:12)
[2023-12-22] MEDS: DEXAMETHASONE SOD PHOSPHATE 10 MG/1 ML VIAL IVPUSH SCH (21:58)
[2023-12-22] MEDS: INSULIN ASPART SLIDING SCALE (NOVOLOG) 1 VIAL SQ SCH (22:14)
[2023-12-23] MEDS: INSULIN (LEVEMIR) 100 UNITS/ML UNITS SQ SCH ×2 (06:29→21:16)
[2023-12-23] MEDS ORDERED: INSULIN (LEVEMIR) 100 UNITS/ML UNITS SQ SCH ×2 (07:54→22:00)
[2023-12-23] MEDS: CEFTRIAXONE 1 GM in DEXTROSE 5%-WATER - 50 ML IVPB SCH (10:30)
[2023-12-23] MEDS: CEFTRIAXONE 1 GM in DEXTROSE 5%-WATER - 50 ML IVPB ONE (15:48)
[2023-12-23] MEDS: FENTANYL PATCH WASTE TD PRN (15:56)
[2023-12-23] MEDS: INSULIN ASPART SLIDING SCALE (NOVOLOG) 1 VIAL SQ SCH ×2 (16:26→21:16)
[2023-12-24] MEDS: INSULIN (LEVEMIR) 100 UNITS/ML UNITS SQ SCH ×2 (06:07→22:13)
[2023-12-24] MEDS ORDERED: INSULIN (LEVEMIR) 100 UNITS/ML UNITS SQ SCH (07:00)
[2023-12-24] MEDS ORDERED: ceFAZolin SODIUM 1 GM VIAL ONE ×2 (07:24→13:22)
[2023-12-24] MEDS ORDERED: THROMBIN (BOVINE) 5,000 UNIT VIAL TP ONE (07:24)
[2023-12-24] MEDS: ceFAZolin SODIUM 1 GM VIAL IVPB ONE ×5 (07:49→13:30)
[2023-12-24 07:57] LABS: HEMATOCRIT 26.3 % (32.4-45.2); HEMOGLOBIN 8.7 GM/dL (10.7-15.3); MCH 28.1 pg (25.7-33.7); MCHC 33.1 g/dl (32.0-36.0); MEAN CELL VOLUME 84.7 fl (80-96); MEAN PLT VOLUME 9.1 fl (7.5-11.1); PLATELET COUNT 289 10^3/uL (134-434); RBC 3.11 M/mm3 (3.60-5.2); RDW 15.7 % (11.6-15.6); WHITE BLOOD COUNT 11.4 K/mm3 (4.0-10.0)
[2023-12-24] MEDS ORDERED: ONDANSETRON 4 MG/2 ML VIAL IVPUSH PRN ×2 (08:12→14:40)
[2023-12-24] MEDS ORDERED: oxyCODONE HCL 5 MG TABLET PO PRN ×4 (08:12→08:23)
[2023-12-24] MEDS ORDERED: HYDROmorphone HCl 2 MG/ML VIAL ONE ×2 (08:14→18:54)
[2023-12-24] MEDS ORDERED: PROPOFOL 80 ML ONE (08:14)
[2023-12-24] MEDS ORDERED: FENTANYL CITRATE/PF 50 MCG/ML VIAL ONE ×10 (08:15→17:22)
[2023-12-24] MEDS ORDERED: LACTATED RINGERS SOLUTION 1,000 ML IV SCH ×2 (08:15→14:40)
[2023-12-24] MEDS ORDERED: MIDAZOLAM HCL 2 MG/2 ML SINGLE DOSE VIAL ONE (08:16)
[2023-12-24 08:29] LABS: POTASSIUM 4.3 mmol/L (3.5-5.1)
[2023-12-24 08:35] LABS: ALBUMIN 2.6 g/dl (3.4-5.0)
[2023-12-24 08:37] LABS: CALCIUM 9.7 mg/dL (8.5-10.1)
[2023-12-24 08:38] LABS: BLOOD UREA NITROGEN 38.3 mg/dL (7-18)
[2023-12-24 08:41] LABS: CREATININE 1.1 mg/dL (0.55-1.3); TOT PROT 7.3 g/dl (6.4-8.2)
[2023-12-24 08:42] LABS: BILIRUBIN,TOTAL 0.3 mg/dL (0.2-1)
[2023-12-24] MEDS ORDERED: SUCCINYLCHOLINE CHLORIDE 200 MG/10 ML SYRINGE ONE (08:55)
[2023-12-24] MEDS ORDERED: CEFTRIAXONE 2 GM in DEXTROSE 5%-WATER 100 ML IVPB SCH (10:00)
[2023-12-24] MEDS ORDERED: PROPOFOL 20 ML ONE ×5 (10:02→13:08)
[2023-12-24] MEDS ORDERED: DEXAMETHASONE SOD PHOSPHATE 4 MG/1 ML VIAL ONE (10:10)
[2023-12-24] MEDS ORDERED: ONDANSETRON 4 MG/2 ML VIAL ONE (10:10)
[2023-12-24] MEDS ORDERED: KETOROLAC TROMETHAMINE 30 MG/1 ML VIAL ONE (10:10)
[2023-12-24] MEDS ORDERED: PROPOFOL 60 ML ONE (10:34)
[2023-12-24] MEDS ORDERED: ACETAMINOPHEN INJECTION 100 ML IVPB ONE (11:25)
[2023-12-24] MEDS ORDERED: HYDROmorphone *PCA* 10MG/50ML DISP.SYRIN PCA SCH (13:15)
[2023-12-24] MEDS: THROMBIN (BOVINE) 5,000 UNIT VIAL TP ONE (13:40)
[2023-12-24] MEDS ORDERED: ACETAMINOPHEN 325 MG TABLET (FP) PO SCH (14:45)
[2023-12-24] MEDS ORDERED: HYDROmorphone *PCA* 10MG/50ML DISP.SYRIN ONE (14:57)
[2023-12-24 15:06] LABS: BASO % 0.1 % (0-2.0); EOS % 0.2 % (0-4.5); HEMATOCRIT 23.6 % (32.4-45.2); HEMOGLOBIN 7.7 GM/dL (10.7-15.3); LYMPH % 11.9 % (8-40); MCH 27.9 pg (25.7-33.7); MCHC 32.7 g/dl (32.0-36.0); MEAN CELL VOLUME 85.5 fl (80-96); MEAN PLT VOLUME 8.9 fl (7.5-11.1); MONO % 6.8 % (3.8-10.2); PLATELET COUNT 297 10^3/uL (134-434); RBC 2.76 M/mm3 (3.60-5.2); RDW 16.1 % (11.6-15.6); WHITE BLOOD COUNT 13.5 K/mm3 (4.0-10.0)
[2023-12-24] MEDS: HYDROmorphone *PCA* 10MG/50ML DISP.SYRIN PCA SCH (15:18)
[2023-12-24] MEDS ORDERED: HYDROmorphone HCl 2 MG/ML VIAL IVPB PRN (15:27)
[2023-12-24] MEDS: ACETAMINOPHEN 1000 MG/100 ML BAG IVPB SCH (15:30)
[2023-12-24] MEDS: INSULIN ASPART SLIDING SCALE (NOVOLOG) 1 VIAL SQ SCH (17:15)
[2023-12-24] MEDS: FENTANYL CITRATE/PF 50 MCG/ML VIAL IVPUSH ONE (17:31)
[2023-12-24] MEDS: INSULIN REGULAR HUMAN 100 UNITS/ML *VIAL IVPUSH ONE ×2 (17:35→18:55)
[2023-12-24] MEDS: HYDROmorphone HCl 2 MG/ML VIAL IVPUSH PRN (18:59)
[2023-12-24] MEDS: LACTATED RINGERS SOLUTION 1,000 ML/1,000 ML INFUS.BAG IV SCH (19:35)
[2023-12-24] MEDS: HEPARIN NA (PORCINE) 5,000 UNITS/ML 1ML VIAL SQ SCH (22:13)
[2023-12-24] MEDS: GABAPENTIN 300 MG CAPSULE PO SCH (22:19)
[2023-12-24] MEDS: EZETIMIBE 10 MG TABLET (FP) PO SCH (22:19)
[2023-12-24] MEDS: DULoxetine HCL 30 MG CAPSULE.DR PO SCH (22:19)
[2023-12-24] MEDS: DOCUSATE SODIUM 100 MG CAPSULE (FP) PO SCH (22:19)
[2023-12-24] MEDS: POLYETHYLENE GLYCOL (HEALTHYLAX) 3350 17 GM PACKET PO SCH (22:19)
[2023-12-24] MEDS: METHOCARBAMOL 500 MG TABLET PO SCH (22:19)
[2023-12-24] MEDS: METHYL SALICYLATE/MENTHOL OINT 30 GM TUBE TP SCH (22:20)
[2023-12-24] MEDS: ATORVASTATIN CA 20 MG TABLET (FP) PO SCH (22:20)
[2023-12-24] MEDS: LIDOCAINE PATCH REMOVAL MC SCH (22:21)
[2023-12-25] MEDS: oxyCODONE HCL 5 MG TABLET PO PRN ×2 (01:31→08:26)
[2023-12-25] MEDS: INSULIN (LEVEMIR) 100 UNITS/ML UNITS SQ SCH (06:30)
[2023-12-25] MEDS ORDERED: INSULIN (LEVEMIR) 100 UNITS/ML UNITS SQ ONE (06:47)
[2023-12-25] MEDS: diphenhydrAMINE HCL 25 MG CAPSULE (FP) PO PRN (08:26)
[2023-12-25] MEDS: CEFTRIAXONE 2 GM in DEXTROSE 5%-WATER 100 ML IVPB SCH (09:26)
[2023-12-25] MEDS: FERROUS SO4 325 MG TABLET (FP) PO SCH (09:29)
[2023-12-25] MEDS: FOLIC ACID 1 MG TABLET (FP) PO SCH (09:29)
[2023-12-25] MEDS: LIDOCAINE 4% PATCH TP SCH (09:29)
[2023-12-25] MEDS: amLODIPine BESYLATE 5 MG TABLET (FP) PO SCH (09:29)
[2023-12-25] MEDS: diazePAM 5 MG TABLET PO SCH (10:25)
[2023-12-25 10:51] LABS: HEMATOCRIT 21.2 % (32.4-45.2); MCH 27.4 pg (25.7-33.7); MEAN CELL VOLUME 85.7 fl (80-96); PLATELET COUNT 269 10^3/uL (134-434); RBC 2.47 M/mm3 (3.60-5.2); RDW 16.5 % (11.6-15.6); WHITE BLOOD COUNT 12.1 K/mm3 (4.0-10.0)
[2023-12-25 11:01] LABS: HEMOGLOBIN 6.8 GM/dL (10.7-15.3)
[2023-12-25 11:11] LABS: POTASSIUM 4.4 mmol/L (3.5-5.1)
[2023-12-25 11:13] LABS: CALCIUM 8.7 mg/dL (8.5-10.1)
[2023-12-25 11:14] LABS: ALBUMIN 2.3 g/dl (3.4-5.0); BLOOD UREA NITROGEN 37.5 mg/dL (7-18); MAGNESIUM 1.5 mg/dL (1.8-2.4)
[2023-12-25 11:17] LABS: CREATININE 1.3 mg/dL (0.55-1.3)
[2023-12-25 11:18] LABS: BILIRUBIN,TOTAL 0.3 mg/dL (0.2-1); TOT PROT 6.1 g/dl (6.4-8.2)
[2023-12-25] MEDS: HYDROmorphone *PCA* 10MG/50ML DISP.SYRIN PCA SCH (14:43)
[2023-12-25] MEDS ORDERED: METHYLNALTREXONE BROMIDE 8 MG/0.4 ML SYRINGE SQ PRN (15:23)
[2023-12-25] MEDS: ACETAMINOPHEN 325 MG TABLET (FP) PO SCH (16:47)
[2023-12-25] MEDS: ACETAMINOPHEN 500 MG TABLET (FP) PO SCH (21:29)
[2023-12-26] MEDS: HYDROmorphone HCl 2 MG/ML VIAL IVPB ONE (05:35)
[2023-12-26] MEDS: INSULIN ASPART SLIDING SCALE (NOVOLOG) 1 VIAL SQ SCH (07:41)
[2023-12-26 09:33] LABS: HEMATOCRIT 28.7 % (32.4-45.2); HEMOGLOBIN 9.4 GM/dL (10.7-15.3); MCHC 32.7 g/dl (32.0-36.0); MEAN CELL VOLUME 85.7 fl (80-96); MEAN PLT VOLUME 8.9 fl (7.5-11.1); PLATELET COUNT 232 10^3/uL (134-434); RBC 3.35 M/mm3 (3.60-5.2); RDW 15.9 % (11.6-15.6); WHITE BLOOD COUNT 10.3 K/mm3 (4.0-10.0)
[2023-12-26] MEDS: AMINO ACIDS/PROTEIN HYDROLYS 30 ML LIQUID.PKT PO SCH (09:38)
[2023-12-26] MEDS: ASCORBIC ACID 250 MG TABLET (FP) PO SCH (09:39)
[2023-12-26] MEDS: MULTIVITAMINS (DAILY MVI) TABLET (FP) PO SCH (09:39)
[2023-12-26 09:46] LABS: POTASSIUM 4.3 mmol/L (3.5-5.1)
[2023-12-26 10:01] LABS: CALCIUM 9.3 mg/dL (8.5-10.1)
[2023-12-26 10:02] LABS: ALBUMIN 2.3 g/dl (3.4-5.0); BLOOD UREA NITROGEN 33.2 mg/dL (7-18); MAGNESIUM 1.8 mg/dL (1.8-2.4)
[2023-12-26 10:05] LABS: CREATININE 1.1 mg/dL (0.55-1.3)
[2023-12-26 10:06] LABS: BILIRUBIN,TOTAL 0.5 mg/dL (0.2-1)
[2023-12-26 10:09] LABS: TOT PROT 6.2 g/dl (6.4-8.2)
[2023-12-26] MEDS ORDERED: HYDROmorphone HCl 2 MG/ML VIAL IVPB PRN (10:32)
[2023-12-26] MEDS: HYDROmorphone HCl 2 MG/ML VIAL IVPB PRN (11:42)
[2023-12-27] MEDS ORDERED: INSULIN (LEVEMIR) 100 UNITS/ML UNITS SQ ONE (06:46)
[2023-12-27] MEDS ORDERED: INSULIN ASPART SLIDING SCALE (NOVOLOG) 1 VIAL SQ ONE (06:46)
[2023-12-27 10:49] VITALS: RESP 18
[2023-12-27] MEDS: INSULIN ASPART SLIDING SCALE (NOVOLOG) 1 VIAL SQ SCH (21:46)
[2023-12-28 05:04] VITALS: TEMP 98.4
[2023-12-28] MEDS: INSULIN (LEVEMIR) 100 UNITS/ML UNITS SQ SCH (06:22)
[2023-12-28] MEDS ORDERED: INSULIN (LEVEMIR) 100 UNITS/ML UNITS SQ ONE (07:20)
[2023-12-28] MEDS ORDERED: INSULIN ASPART SLIDING SCALE (NOVOLOG) 1 VIAL SQ ONE (07:20)
[2023-12-28 14:59] VITALS: BP 144/76; PULSE 101
== END 2023-12-28 19:46 | DRG 459 ==
LOC: JER 13:07 → JERBED 17:53 → OBSVTOIN 18:02 → J6S 18:27
PROVIDERS: ADMIT Internal Medicine; ATTEND Family Medicine
PROC: 0RG6071 Fusion of Thoracic Vertebral Joint with Autologous Tissue Substitute, Posterior Approach, Posterior Column, Open Approach (ICD-10-PCS; 2023-12-24)
PROC: 00NW0ZZ Release Cervical Spinal Cord, Open Approach (ICD-10-PCS; 2023-12-24)
PROC: 0PH304Z Insertion of Internal Fixation Device into Cervical Vertebra, Open Approach (ICD-10-PCS; 2023-12-24)
PROC: 0PH404Z Insertion of Internal Fixation Device into Thoracic Vertebra, Open Approach (ICD-10-PCS; 2023-12-24)
PROC: 4A1004G Monitoring of Central Nervous Electrical Activity, Intraoperative, Open Approach (ICD-10-PCS; 2023-12-24)
PROC: 0RG1071 Fusion of Cervical Vertebral Joint with Autologous Tissue Substitute, Posterior Approach, Posterior Column, Open Approach (ICD-10-PCS; principal; 2023-12-24 08:30)
PROC: 30233N1 Transfusion of Nonautologous Red Blood Cells into Peripheral Vein, Percutaneous Approach (ICD-10-PCS; 2023-12-25)
PROC: 05HY33Z Insertion of Infusion Device into Upper Vein, Percutaneous Approach (ICD-10-PCS; 2023-12-28)
DX: M46.42 Discitis, unspecified, cervical region (principal); G06.1 Intraspinal abscess and granuloma; L02.11 Cutaneous abscess of neck; M46.22 Osteomyelitis of vertebra, cervical region; G95.89 Other specified diseases of spinal cord; E78.5 Hyperlipidemia, unspecified; E11.9 Type 2 diabetes mellitus without complications; I10 Essential (primary) hypertension; D50.9 Iron deficiency anemia, unspecified; I25.10 Atherosclerotic heart disease of native coronary artery without angina pectoris
CPT/HCPCS: 36415; 36430; 36569; 71045-TC-FY; 72040-TC; 72050-TC-FY; 72156-TC; 73030-TC-LT-FY; 73030-TC-RT-FY; 76000-TC-FY; 80048; 80053; 80061; 81003; 82962; 83036; 83540; 83550; 83735; 85025; 85027; 85651; 86140; 86922; 87040; 87070; 87075; 87077; 87086; 87205; 93005; 93010; 94760; 97116-GP; 97162-GP; 99285-25; C1713; G0378; J0131; J1100; J1644; J1756; P9058

== ENCOUNTER 2024-05-27 14:09 | Observation (INO) | payer OTHER ==
[2024-05-27 15:22] LABS: BASO % 0.7 % (0-2.0); EOS % 1.7 % (0-4.5); HEMATOCRIT 37.3 % (32.4-45.2); HEMOGLOBIN 12.2 GM/dL (10.7-15.3); LYMPH % 21.5 % (8-40); MCH 27.3 pg (25.7-33.7); MCHC 32.6 g/dl (32.0-36.0); MEAN CELL VOLUME 83.7 fl (80-96); MEAN PLT VOLUME 9.9 fl (7.5-11.1); MONO % 12.3 % (3.8-10.2); NEUT % 63.8 % (42.8-82.8); PLATELET COUNT 222 10^3/uL (134-434); RBC 4.46 M/mm3 (3.60-5.2); RDW 17.9 % (11.6-15.6); WHITE BLOOD COUNT 7.4 K/mm3 (4.0-10.0)
[2024-05-27 15:27] LABS: VENOUS BASE EXCESS -3.1 mmol/L (-2-2); VENOUS PCO2 43.8 mmHg (38-52); VENOUS PH 7.333 (7.310-7.410)
[2024-05-27 15:28] LABS: INR 1.04 (0.83-1.09)
[2024-05-27 15:31] LABS: ACTIVATED PTT 26.5 SECONDS (25.2-36.5)
[2024-05-27 15:40] LABS: POTASSIUM 4.5 mmol/L (3.5-5.1)
[2024-05-27 15:42] LABS: CALCIUM 9.5 mg/dL (8.5-10.1)
[2024-05-27 15:43] LABS: ALBUMIN 3.6 g/dl (3.4-5.0); BLOOD UREA NITROGEN 52.4 mg/dL (7-18)
[2024-05-27 15:46] LABS: CREATININE 1.5 mg/dL (0.55-1.3)
[2024-05-27 15:47] LABS: BILIRUBIN,TOTAL 0.4 mg/dL (0.2-1)
[2024-05-27 15:48] LABS: TOT PROT 7.2 g/dl (6.4-8.2)
[2024-05-27 15:55] LABS: LACTIC ACID 2.4 mmol/L (0.4-2.0)
[2024-05-27] MEDS: SODIUM CHLORIDE 0.9% 500 ML INFUS.BAG IV ONE ×2 (17:01→19:52)
[2024-05-27 19:12] LABS: EPI CELLS 5 /uL (0-25.1); HYALINE CASTS 1 /uL (0-3.1); PH,URINE 5.5 (5.0-8.0); URINE APPEARANCE CLEAR; URINE BACTERIA 2 /uL (0-1359); URINE BILIRUBIN NEGATIVE (NEGATIVE); URINE COLOR YELLOW; URINE GLUCOSE (UA) NEGATIVE (NEGATIVE); URINE KETONE NEGATIVE (NEGATIVE); URINE LEUK ESTERASE NEGATIVE (NEGATIVE); URINE NITRITE NEGATIVE (NEGATIVE); URINE PROTEIN 1+ (NEGATIVE); URINE RBC 10 /uL (0-23.9); URINE UROBILINOGEN 0.2 mg/dL (0.2-1.0); URINE WBC 7 /uL (0-25.8)
[2024-05-27] MEDS ORDERED: metroNIDAZOLE 250 MG TABLET ONE (19:44)
[2024-05-27] MEDS: metroNIDAZOLE 250 MG TABLET PO ONE (19:52)
[2024-05-27] MEDS: VANCOMYCIN 250 MG/5 ML ORAL SOLUTION (RESTRICTED TO ID ONLY) PO ONE (19:53)
[2024-05-27] MEDS ORDERED: ACETAMINOPHEN INJECTION 100 ML ONE (20:49)
[2024-05-27] MEDS: ACETAMINOPHEN 1000 MG/100 ML BAG IVPB ONE (20:53)
[2024-05-27] MEDS ORDERED: INSULIN ASPART SLIDING SCALE (NOVOLOG) 1 VIAL SQ ONE (22:37)
[2024-05-27] MEDS: INSULIN ASPART SLIDING SCALE (NOVOLOG) 1 VIAL SQ SCH (22:45)
[2024-05-28] MEDS ORDERED: LIDOCAINE 4% PATCH TP ONE (01:32)
[2024-05-28] MEDS: LIDOCAINE 4% PATCH TP ONE (01:34)
[2024-05-28] MEDS: ACETAMINOPHEN 325 MG TABLET (FP) PO ONE (01:38)
[2024-05-28] MEDS: SODIUM CHLORIDE 1,000 ML IV SCH (01:39)
[2024-05-28 03:55] VITALS: BMI 31.5
[2024-05-28] MEDS ORDERED: ACETAMINOPHEN 1000 MG/100 ML BAG IVPB PRN (05:19)
[2024-05-28] MEDS: ACETAMINOPHEN 1000 MG/100 ML BAG IVPB ONE (05:32)
[2024-05-28] MEDS: AMINO ACIDS/PROTEIN HYDROLYS 30 ML LIQUID.PKT PO SCH (08:44)
[2024-05-28 09:05] LABS: BASO % 0.3 % (0-2.0); EOS % 1.3 % (0-4.5); HEMATOCRIT 30.6 % (32.4-45.2); HEMOGLOBIN 10.2 GM/dL (10.7-15.3); LYMPH % 15.7 % (8-40); MCH 27.5 pg (25.7-33.7); MCHC 33.5 g/dl (32.0-36.0); MEAN CELL VOLUME 82.2 fl (80-96); MEAN PLT VOLUME 9.6 fl (7.5-11.1); MONO % 9.8 % (3.8-10.2); NEUT % 72.9 % (42.8-82.8); PLATELET COUNT 150 10^3/uL (134-434); RBC 3.72 M/mm3 (3.60-5.2); RDW 18.3 % (11.6-15.6); WHITE BLOOD COUNT 8.6 K/mm3 (4.0-10.0)
[2024-05-28 09:15] LABS: POTASSIUM 3.9 mmol/L (3.5-5.1)
[2024-05-28 09:18] LABS: BLOOD UREA NITROGEN 39.8 mg/dL (7-18); CALCIUM 8.5 mg/dL (8.5-10.1); MAGNESIUM 1.6 mg/dL (1.8-2.4)
[2024-05-28 09:21] LABS: CREATININE 0.9 mg/dL (0.55-1.3); PHOSPHOROUS 3.6 mg/dL (2.5-4.9)
[2024-05-28 09:23] LABS: BILIRUBIN,TOTAL 0.4 mg/dL (0.2-1); TOT PROT 6.1 g/dl (6.4-8.2)
[2024-05-28] MEDS: MULTIVITAMINS (DAILY MVI) TABLET (FP) PO SCH (11:08)
[2024-05-28] MEDS: amLODIPine BESYLATE 5 MG TABLET (FP) PO SCH (11:08)
[2024-05-28] MEDS: MINERAL OIL/PET HY-PHL TOPICAL OINTMENT 454 GM JAR TP SCH (14:00)
[2024-05-28] MEDS: GABAPENTIN 400 MG CAPSULE PO SCH (15:49)
[2024-05-28] MEDS: LOPERAMIDE HCL 2 MG CAPSULE PO PRN (21:31)
[2024-05-28] MEDS: ATORVASTATIN CA 10 MG TABLET (FP) PO SCH (21:31)
[2024-05-28] MEDS: LIDOCAINE PATCH REMOVAL MC SCH (21:31)
[2024-05-29 09:32] LABS: BASO % 0.5 % (0-2.0); EOS % 3.2 % (0-4.5); HEMATOCRIT 29.8 % (32.4-45.2); HEMOGLOBIN 9.9 GM/dL (10.7-15.3); LYMPH % 30.3 % (8-40); MCH 27.5 pg (25.7-33.7); MEAN CELL VOLUME 83.3 fl (80-96); MEAN PLT VOLUME 9.3 fl (7.5-11.1); PLATELET COUNT 153 10^3/uL (134-434); RBC 3.58 M/mm3 (3.60-5.2); RDW 17.7 % (11.6-15.6); WHITE BLOOD COUNT 6.3 K/mm3 (4.0-10.0)
[2024-05-29 09:56] LABS: POTASSIUM 3.8 mmol/L (3.5-5.1)
[2024-05-29 10:22] LABS: ALBUMIN 2.9 g/dl (3.4-5.0)
[2024-05-29 10:23] LABS: BLOOD UREA NITROGEN 26.8 mg/dL (7-18)
[2024-05-29 10:26] LABS: CREATININE 0.9 mg/dL (0.55-1.3)
[2024-05-29 14:05] VITALS: RESP 18
[2024-05-29] MEDS: INSULIN (LEVEMIR) 100 UNITS/ML UNITS SQ SCH (21:44)
[2024-05-29] MEDS: HEPARIN NA (PORCINE) 5,000 UNITS/ML 1ML VIAL SQ SCH (21:45)
[2024-05-30 08:24] LABS: POTASSIUM 3.8 mmol/L (3.5-5.1)
[2024-05-30 08:28] LABS: BASO % 0.7 % (0-2.0); EOS % 3.8 % (0-4.5); HEMATOCRIT 29.2 % (32.4-45.2); HEMOGLOBIN 9.9 GM/dL (10.7-15.3); LYMPH % 33.2 % (8-40); MCH 27.7 pg (25.7-33.7); MEAN CELL VOLUME 81.6 fl (80-96); MEAN PLT VOLUME 9.6 fl (7.5-11.1); NEUT % 52.3 % (42.8-82.8); PLATELET COUNT 150 10^3/uL (134-434); RBC 3.58 M/mm3 (3.60-5.2); RDW 17.1 % (11.6-15.6); WHITE BLOOD COUNT 6.2 K/mm3 (4.0-10.0)
[2024-05-30 08:35] LABS: ALBUMIN 2.8 g/dl (3.4-5.0); BLOOD UREA NITROGEN 22.7 mg/dL (7-18)
[2024-05-30 08:38] LABS: CREATININE 0.8 mg/dL (0.55-1.3)
[2024-05-30 08:40] LABS: BILIRUBIN,TOTAL 0.6 mg/dL (0.2-1); TOT PROT 5.9 g/dl (6.4-8.2)
[2024-05-30] MEDS: ENALAPRIL MALEATE 5 MG TABLET PO SCH (09:59)
[2024-05-30] MEDS ORDERED: LOPERAMIDE HCL 2 MG CAPSULE PO PRN (17:24)
[2024-05-31 10:40] LABS: BASO % 0.8 % (0-2.0); EOS % 2.4 % (0-4.5); HEMATOCRIT 32.2 % (32.4-45.2); HEMOGLOBIN 10.8 GM/dL (10.7-15.3); LYMPH % 29.2 % (8-40); MCH 27.6 pg (25.7-33.7); MCHC 33.6 g/dl (32.0-36.0); MEAN PLT VOLUME 10.3 fl (7.5-11.1); MONO % 8.1 % (3.8-10.2); NEUT % 59.5 % (42.8-82.8); PLATELET COUNT 131 10^3/uL (134-434); RBC 3.93 M/mm3 (3.60-5.2); RDW 17.4 % (11.6-15.6); WHITE BLOOD COUNT 8.9 K/mm3 (4.0-10.0)
[2024-05-31 10:41] LABS: POTASSIUM 4.2 mmol/L (3.5-5.1)
[2024-05-31 10:51] LABS: BLOOD UREA NITROGEN 22.4 mg/dL (7-18); MAGNESIUM 1.4 mg/dL (1.8-2.4)
[2024-05-31 10:54] LABS: CREATININE 0.8 mg/dL (0.55-1.3)
[2024-05-31 10:55] LABS: BILIRUBIN,TOTAL 0.4 mg/dL (0.2-1)
[2024-05-31 10:57] LABS: TOT PROT 6.1 g/dl (6.4-8.2)
[2024-05-31] MEDS: INSULIN ASPART SLIDING SCALE (NOVOLOG) 1 VIAL SQ SCH (11:32)
[2024-06-01 09:00] LABS: BASO % 0.6 % (0-2.0); EOS % 3.5 % (0-4.5); HEMATOCRIT 30.7 % (32.4-45.2); HEMOGLOBIN 10.2 GM/dL (10.7-15.3); LYMPH % 31.1 % (8-40); MCH 27.6 pg (25.7-33.7); MCHC 33.1 g/dl (32.0-36.0); MEAN CELL VOLUME 83.2 fl (80-96); MEAN PLT VOLUME 9.9 fl (7.5-11.1); MONO % 8.8 % (3.8-10.2); PLATELET COUNT 159 10^3/uL (134-434); RBC 3.69 M/mm3 (3.60-5.2); RDW 16.9 % (11.6-15.6); WHITE BLOOD COUNT 6.7 K/mm3 (4.0-10.0)
[2024-06-01 09:18] LABS: POTASSIUM 3.8 mmol/L (3.5-5.1)
[2024-06-01 09:21] LABS: CALCIUM 8.8 mg/dL (8.5-10.1)
[2024-06-01 09:22] LABS: ALBUMIN 2.8 g/dl (3.4-5.0); BLOOD UREA NITROGEN 30.9 mg/dL (7-18); MAGNESIUM 1.3 mg/dL (1.8-2.4)
[2024-06-01 09:25] LABS: CREATININE 1.1 mg/dL (0.55-1.3)
[2024-06-01 09:26] LABS: BILIRUBIN,TOTAL 0.4 mg/dL (0.2-1)
[2024-06-01 09:27] LABS: TOT PROT 5.9 g/dl (6.4-8.2)
[2024-06-01] MEDS: MAGNESIUM OXIDE 400 MG TABLET (FP) PO SCH (09:53)
[2024-06-01] MEDS: INSULIN (LEVEMIR) 100 UNITS/ML UNITS SQ SCH (10:41)
[2024-06-01 14:48] VITALS: BP 151/75; PULSE 86; TEMP 98.4
[2024-06-01] MEDS ORDERED: INSULIN ASPART SLIDING SCALE (NOVOLOG) 1 VIAL SQ ONE (17:35)
== END 2024-06-01 19:34 ==
LOC: JER 14:09 → JERBED 18:53 → J8W 05-28 03:41
PROVIDERS: ADMIT Internal Medicine; ATTEND Nurse Practitioner Family
PROC: 3E033NZ Introduction of Analgesics, Hypnotics, Sedatives into Peripheral Vein, Percutaneous Approach (ICD-10-PCS; principal; 2024-05-27)
PROC: 3E023GC Introduction of Other Therapeutic Substance into Muscle, Percutaneous Approach (ICD-10-PCS; 2024-05-27)
PROC: 3E013VG Introduction of Insulin into Subcutaneous Tissue, Percutaneous Approach (ICD-10-PCS; 2024-05-27)
PROC: 3E0337Z Introduction of Electrolytic and Water Balance Substance into Peripheral Vein, Percutaneous Approach (ICD-10-PCS; 2024-05-27)
DX: U07.1 COVID-19 (principal); N17.9 Acute kidney failure, unspecified; E86.0 Dehydration; R19.7 Diarrhea, unspecified; I10 Essential (primary) hypertension; E11.9 Type 2 diabetes mellitus without complications; E78.5 Hyperlipidemia, unspecified; R15.9 Full incontinence of feces; G89.29 Other chronic pain; M54.9 Dorsalgia, unspecified; M25.562 Pain in left knee; M46.22 Osteomyelitis of vertebra, cervical region; Z99.3 Dependence on wheelchair; Z86.19 Personal history of other infectious and parasitic diseases; Z91.030 Bee allergy status
CPT/HCPCS: 0241U-QW; 36415; 71045-TC-FY; 72040-TC; 72125-TC; 72141-TC; 80053; 81003; 82550; 82803; 82962; 83036; 83605; 83735; 84100; 84484; 85025; 85610; 85730; 86850; 86900; 86901; 87040; 87086; 87324; 87449; 87635; 93005; 93010; 96361; 96372; 96374; 96376; 97116-GP; 97161-GP; 99285-25; G0378; J0131; J1644

== ENCOUNTER 2024-07-23 10:29 | Inpatient (IN) | payer OTHER ==
[2024-07-23 11:17] VITALS: BMI 29.7
[2024-07-23 12:03] LABS: VENOUS BASE EXCESS -5.8 mmol/L (-2-2); VENOUS O2 SATURATION 47.9 % (70-80); VENOUS PCO2 49.7 mmHg (38-52); VENOUS PH 7.244 (7.310-7.410)
[2024-07-23 12:04] LABS: BASO % 0.5 % (0-2.0); MCH 28.3 pg (25.7-33.7); WHITE BLOOD COUNT 6.5 K/mm3 (4.0-10.0)
[2024-07-23] MEDS: SODIUM CHLORIDE 0.9% 500 ML INFUS.BAG IV ONE (12:04)
[2024-07-23 12:09] LABS: EOS % 0.9 % (0-4.5); HEMATOCRIT 17.2 % (32.4-45.2); LYMPH % 22.1 % (8-40); MCHC 32.4 g/dl (32.0-36.0); MEAN CELL VOLUME 87.4 fl (80-96); MEAN PLT VOLUME 9.6 fl (7.5-11.1); MONO % 12.1 % (3.8-10.2); NEUT % 64.4 % (42.8-82.8); PLATELET COUNT 212 10^3/uL (134-434); RBC 1.97 M/mm3 (3.60-5.2); RDW 17.5 % (11.6-15.6)
[2024-07-23 12:10] LABS: INR 1.06 (0.83-1.09); PROTHROMBIN TIME (PATIENT) 12.2 SEC (9.7-13.0)
[2024-07-23 12:13] LABS: ACTIVATED PTT 30.6 SECONDS (25.2-36.5)
[2024-07-23 12:14] LABS: HEMOGLOBIN 5.6 GM/dL (10.7-15.3)
[2024-07-23 12:25] LABS: POTASSIUM 5.1 mmol/L (3.5-5.1)
[2024-07-23 12:26] LABS: CALCIUM 8.7 mg/dL (8.5-10.1)
[2024-07-23 12:27] LABS: ALBUMIN 2.8 g/dl (3.4-5.0); BLOOD UREA NITROGEN 102.7 mg/dL (7-18)
[2024-07-23 12:30] LABS: CREATININE 1.9 mg/dL (0.55-1.3)
[2024-07-23 12:32] LABS: BILIRUBIN,TOTAL 0.2 mg/dL (0.2-1); TOT PROT 5.8 g/dl (6.4-8.2)
[2024-07-23 12:46] LABS: ERYTHROCYTE SEDIMENTATION RATE 94 mm/hr (0-30)
[2024-07-23 14:49] LABS: IRON SERUM 38 ug/dL (50-175)
[2024-07-23 14:51] LABS: TOTAL IRON BINDING CAPACITY 306 ug/dL (250-450)
[2024-07-23] MEDS: LACTATED RINGERS SOLUTION 1,000 ML/1,000 ML INFUS.BAG IV SCH (17:10)
[2024-07-23] MEDS: INSULIN ASPART SLIDING SCALE (NOVOLOG) 1 VIAL SQ SCH (17:18)
[2024-07-23] MEDS ORDERED: INSULIN (LEVEMIR) 100 UNITS/ML UNITS SQ SCH (22:00)
[2024-07-23] MEDS ORDERED: SULFAMETHOXAZOLE/TRIMETHOPRIM 800MG/160MG D.S. TABLET ONE (22:56)
[2024-07-23] MEDS ORDERED: ACETAMINOPHEN 325 MG TABLET (FP) ONE (22:56)
[2024-07-23] MEDS ORDERED: ATORVASTATIN CA 10 MG TABLET (FP) ONE (22:57)
[2024-07-23] MEDS ORDERED: DULoxetine HCL 30 MG CAPSULE.DR PO ONE (22:57)
[2024-07-23] MEDS ORDERED: GABAPENTIN 400 MG CAPSULE ONE (22:57)
[2024-07-23] MEDS ORDERED: INSULIN ASPART SLIDING SCALE (NOVOLOG) 1 VIAL SQ ONE (22:58)
[2024-07-23] MEDS ORDERED: INSULIN (LEVEMIR) 100 UNITS/ML UNITS SQ ONE (22:58)
[2024-07-23] MEDS: ACETAMINOPHEN 325 MG TABLET (FP) PO SCH (23:08)
[2024-07-23] MEDS: INSULIN (LEVEMIR) 100 UNITS/ML UNITS SQ SCH (23:09)
[2024-07-23] MEDS: GABAPENTIN 400 MG CAPSULE PO SCH (23:09)
[2024-07-23] MEDS: DULoxetine HCL 30 MG CAPSULE.DR PO SCH (23:09)
[2024-07-23] MEDS: ATORVASTATIN CA 10 MG TABLET (FP) PO SCH (23:09)
[2024-07-24] MEDS: LACTOBACILLUS ACIDOPHILUS 1 TABLET PO SCH (00:26)
[2024-07-24] MEDS: EZETIMIBE 10 MG TABLET (FP) PO SCH (00:26)
[2024-07-24] MEDS ORDERED: GABAPENTIN 300 MG CAPSULE ONE (06:32)
[2024-07-24] MEDS: GABAPENTIN 300 MG CAPSULE PO SCH (06:57)
[2024-07-24 07:29] LABS: POTASSIUM 4.5 mmol/L (3.5-5.1)
[2024-07-24 07:30] LABS: CALCIUM 8.8 mg/dL (8.5-10.1)
[2024-07-24 07:34] LABS: CREATININE 1.2 mg/dL (0.55-1.3)
[2024-07-24 07:37] LABS: BLOOD UREA NITROGEN 67.4 mg/dL (7-18)
[2024-07-24 07:45] LABS: BASO % 0.4 % (0-2.0); EOS % 3.1 % (0-4.5); HEMATOCRIT 21.5 % (32.4-45.2); HEMOGLOBIN 7.3 GM/dL (10.7-15.3); LYMPH % 21.6 % (8-40); MCH 29.8 pg (25.7-33.7); MEAN CELL VOLUME 87.9 fl (80-96); MEAN PLT VOLUME 9.6 fl (7.5-11.1); MONO % 14.1 % (3.8-10.2); NEUT % 60.8 % (42.8-82.8); PLATELET COUNT 193 10^3/uL (134-434); RBC 2.44 M/mm3 (3.60-5.2); RDW 16.7 % (11.6-15.6); WHITE BLOOD COUNT 6.9 K/mm3 (4.0-10.0)
[2024-07-24] MEDS ORDERED: DULoxetine HCL 30 MG CAPSULE.DR PO ONE ×2 (11:59→22:08)
[2024-07-24] MEDS: POLYETHYLENE GLYCOL (HEALTHYLAX) 3350 17 GM PACKET PO SCH (12:13)
[2024-07-24] MEDS ORDERED: POLYETHYLENE GLYCOL (HEALTHYLAX) 3350 17 GM PACKET ONE ×2 (12:13→22:07)
[2024-07-24] MEDS ORDERED: INSULIN ASPART SLIDING SCALE (NOVOLOG) 1 VIAL SQ ONE ×2 (12:14→16:57)
[2024-07-24] MEDS ORDERED: ATORVASTATIN CA 10 MG TABLET (FP) ONE (22:08)
[2024-07-24] MEDS ORDERED: GABAPENTIN 400 MG CAPSULE ONE (22:08)
[2024-07-24] MEDS ORDERED: ACETAMINOPHEN 325 MG TABLET (FP) ONE (22:08)
[2024-07-24] MEDS ORDERED: INSULIN (LEVEMIR) 100 UNITS/ML UNITS SQ ONE (22:21)
[2024-07-25 08:14] LABS: POTASSIUM 4.5 mmol/L (3.5-5.1)
[2024-07-25 08:16] LABS: ALBUMIN 2.6 g/dl (3.4-5.0)
[2024-07-25 08:17] LABS: CALCIUM 8.8 mg/dL (8.5-10.1)
[2024-07-25 08:20] LABS: CREATININE 0.9 mg/dL (0.55-1.3)
[2024-07-25 08:21] LABS: BILIRUBIN,TOTAL 0.4 mg/dL (0.2-1); TOT PROT 5.3 g/dl (6.4-8.2)
[2024-07-25 08:23] LABS: BASO % 0.4 % (0-2.0); EOS % 2.5 % (0-4.5); LYMPH % 21.9 % (8-40); MCH 29.3 pg (25.7-33.7); MCHC 33.6 g/dl (32.0-36.0); MEAN CELL VOLUME 87.3 fl (80-96); MEAN PLT VOLUME 9.4 fl (7.5-11.1); MONO % 13.7 % (3.8-10.2); NEUT % 61.5 % (42.8-82.8); PLATELET COUNT 199 10^3/uL (134-434); RBC 2.17 M/mm3 (3.60-5.2); RDW 17.1 % (11.6-15.6); WHITE BLOOD COUNT 8.1 K/mm3 (4.0-10.0)
[2024-07-25 08:24] LABS: BLOOD UREA NITROGEN 39.6 mg/dL (7-18)
[2024-07-25 08:30] LABS: HEMOGLOBIN 6.4 GM/dL (10.7-15.3)
[2024-07-25] MEDS: PANTOPRAZOLE 40 MG TABLET PO SCH (12:30)
[2024-07-25] MEDS: FUROSEMIDE 40 MG/4 ML INJECTABLE VIAL IVPUSH ONE (13:56)
[2024-07-25] MEDS: IRON SUCROSE INJECTION 200 MG in SODIUM CHLORIDE 100 ML IVPB ONE (13:56)
[2024-07-25 15:21] LABS: HEMATOCRIT 19.7 % (32.4-45.2); MCHC 32.7 g/dl (32.0-36.0); MEAN CELL VOLUME 88.7 fl (80-96); MEAN PLT VOLUME 9.4 fl (7.5-11.1); PLATELET COUNT 210 10^3/uL (134-434); RBC 2.22 M/mm3 (3.60-5.2); RDW 16.7 % (11.6-15.6); WHITE BLOOD COUNT 7.6 K/mm3 (4.0-10.0)
[2024-07-25 15:24] LABS: HEMOGLOBIN 6.5 GM/dL (10.7-15.3)
[2024-07-25] MEDS ORDERED: ACETAMINOPHEN 325 MG TABLET (FP) PO PRN (17:01)
[2024-07-25] MEDS: ACETAMINOPHEN 325 MG TABLET (FP) PO PRN (17:46)
[2024-07-25] MEDS: MINERAL OIL ENEMA 133 ML ENEMA RC ONE ×2 (17:55)
[2024-07-25 19:26] LABS: HEMATOCRIT 18.5 % (32.4-45.2); HEMOGLOBIN 6.1 GM/dL (10.7-15.3); MCH 28.6 pg (25.7-33.7); MCHC 32.8 g/dl (32.0-36.0); MEAN CELL VOLUME 87.1 fl (80-96); MEAN PLT VOLUME 8.9 fl (7.5-11.1); PLATELET COUNT 213 10^3/uL (134-434); RBC 2.12 M/mm3 (3.60-5.2); WHITE BLOOD COUNT 7.6 K/mm3 (4.0-10.0)
[2024-07-25] MEDS: POLYETHYLENE GLYCOL (HEALTHYLAX) 3350 17 GM PACKET PO SCH (22:58)
[2024-07-26 08:27] LABS: HEMATOCRIT 24.3 % (32.4-45.2); HEMOGLOBIN 8.1 GM/dL (10.7-15.3); MCH 29.3 pg (25.7-33.7); MCHC 33.4 g/dl (32.0-36.0); MEAN CELL VOLUME 87.9 fl (80-96); MEAN PLT VOLUME 9.5 fl (7.5-11.1); PLATELET COUNT 204 10^3/uL (134-434); RBC 2.76 M/mm3 (3.60-5.2); RDW 15.8 % (11.6-15.6)
[2024-07-26 08:40] LABS: POTASSIUM 4.3 mmol/L (3.5-5.1)
[2024-07-26 08:44] LABS: ALBUMIN 2.9 g/dl (3.4-5.0); BLOOD UREA NITROGEN 36.6 mg/dL (7-18); CALCIUM 9.2 mg/dL (8.5-10.1)
[2024-07-26 08:45] LABS: MAGNESIUM 1.6 mg/dL (1.8-2.4)
[2024-07-26 08:48] LABS: CREATININE 1.1 mg/dL (0.55-1.3); PHOSPHOROUS 3.9 mg/dL (2.5-4.9)
[2024-07-26 08:49] LABS: BILIRUBIN,TOTAL 0.9 mg/dL (0.2-1); TOT PROT 5.7 g/dl (6.4-8.2)
[2024-07-26] MEDS: IRON SUCROSE INJECTION 200 MG in SODIUM CHLORIDE 100 ML IVPB ONE (09:26)
[2024-07-26] MEDS: PEG 3350/NA SULF BICARB CL/KCL 4000 ML SOLN.RECON PO ONE (18:01)
[2024-07-26] MEDS: BISACODYL 5 MG TABLET.DR (FP) PO ONE (22:17)
[2024-07-27 06:56] LABS: BASO % 0.5 % (0-2.0); EOS % 3.2 % (0-4.5); HEMATOCRIT 23.8 % (32.4-45.2); HEMOGLOBIN 8.1 GM/dL (10.7-15.3); LYMPH % 21.9 % (8-40); MCH 29.4 pg (25.7-33.7); MCHC 33.9 g/dl (32.0-36.0); MEAN CELL VOLUME 86.9 fl (80-96); MEAN PLT VOLUME 9.2 fl (7.5-11.1); MONO % 14.5 % (3.8-10.2); NEUT % 59.9 % (42.8-82.8); PLATELET COUNT 222 10^3/uL (134-434); RBC 2.74 M/mm3 (3.60-5.2); RDW 15.9 % (11.6-15.6); WHITE BLOOD COUNT 7.9 K/mm3 (4.0-10.0)
[2024-07-27 07:03] LABS: INR 1.13 (0.83-1.09); PROTHROMBIN TIME (PATIENT) 12.7 SEC (9.7-13.0)
[2024-07-27 07:17] LABS: POTASSIUM 3.6 mmol/L (3.5-5.1)
[2024-07-27 07:20] LABS: BLOOD UREA NITROGEN 25.4 mg/dL (7-18)
[2024-07-27 07:21] LABS: ALBUMIN 2.8 g/dl (3.4-5.0); MAGNESIUM 1.5 mg/dL (1.8-2.4)
[2024-07-27 07:24] LABS: PHOSPHOROUS 3.7 mg/dL (2.5-4.9)
[2024-07-27 07:25] LABS: BILIRUBIN,TOTAL 0.5 mg/dL (0.2-1); TOT PROT 5.7 g/dl (6.4-8.2)
[2024-07-27 09:41] LABS: RETICULOCYTES 4.91 % (0.5-1.5)
[2024-07-27] MEDS: IRON SUCROSE INJECTION 200 MG in SODIUM CHLORIDE 100 ML IVPB ONE (10:00)
[2024-07-27] MEDS: PEG 3350/NA SULF BICARB CL/KCL 4000 ML SOLN.RECON PO ONE (16:04)
[2024-07-28 08:58] LABS: BASO % 0.5 % (0-2.0); EOS % 3.5 % (0-4.5); HEMATOCRIT 23.4 % (32.4-45.2); HEMOGLOBIN 7.9 GM/dL (10.7-15.3); LYMPH % 20.7 % (8-40); MCH 29.5 pg (25.7-33.7); MCHC 33.5 g/dl (32.0-36.0); MEAN PLT VOLUME 9.5 fl (7.5-11.1); MONO % 12.9 % (3.8-10.2); NEUT % 62.4 % (42.8-82.8); PLATELET COUNT 212 10^3/uL (134-434); RBC 2.66 M/mm3 (3.60-5.2); RDW 16.5 % (11.6-15.6)
[2024-07-28 09:04] LABS: INR 1.17 (0.83-1.09); PROTHROMBIN TIME (PATIENT) 13.2 SEC (9.7-13.0)
[2024-07-28 09:20] LABS: POTASSIUM 3.7 mmol/L (3.5-5.1)
[2024-07-28 09:36] LABS: CALCIUM 8.5 mg/dL (8.5-10.1)
[2024-07-28 09:37] LABS: ALBUMIN 2.7 g/dl (3.4-5.0); BLOOD UREA NITROGEN 18.1 mg/dL (7-18); MAGNESIUM 1.4 mg/dL (1.8-2.4)
[2024-07-28 09:40] LABS: CREATININE 1.1 mg/dL (0.55-1.3); PHOSPHOROUS 3.8 mg/dL (2.5-4.9)
[2024-07-28 09:41] LABS: BILIRUBIN,TOTAL 0.6 mg/dL (0.2-1)
[2024-07-28 09:42] LABS: TOT PROT 5.5 g/dl (6.4-8.2)
[2024-07-28] MEDS ORDERED: PEG 3350/NA SULF BICARB CL/KCL 4000 ML SOLN.RECON PO ONE (19:26)
[2024-07-28] MEDS: BISACODYL 5 MG TABLET.DR (FP) PO ONE (20:43)
[2024-07-28] MEDS: PEG 3350/NA SULF BICARB CL/KCL 4000 ML SOLN.RECON PO ONE (20:50)
[2024-07-29 08:30] LABS: BASO % 0.5 % (0-2.0); EOS % 2.7 % (0-4.5); HEMATOCRIT 24.2 % (32.4-45.2); HEMOGLOBIN 8.3 GM/dL (10.7-15.3); LYMPH % 21.1 % (8-40); MCH 29.8 pg (25.7-33.7); MCHC 34.2 g/dl (32.0-36.0); MEAN CELL VOLUME 87.2 fl (80-96); MEAN PLT VOLUME 9.4 fl (7.5-11.1); MONO % 12.6 % (3.8-10.2); NEUT % 63.1 % (42.8-82.8); PLATELET COUNT 225 10^3/uL (134-434); RBC 2.78 M/mm3 (3.60-5.2); WHITE BLOOD COUNT 5.9 K/mm3 (4.0-10.0)
[2024-07-29 08:35] LABS: INR 1.19 (0.83-1.09); PROTHROMBIN TIME (PATIENT) 13.6 SEC (9.7-13.0)
[2024-07-29 08:50] LABS: POTASSIUM 3.5 mmol/L (3.5-5.1)
[2024-07-29 08:55] LABS: ALBUMIN 2.8 g/dl (3.4-5.0); BLOOD UREA NITROGEN 12.3 mg/dL (7-18); CALCIUM 8.5 mg/dL (8.5-10.1); MAGNESIUM 1.3 mg/dL (1.8-2.4)
[2024-07-29 08:59] LABS: CREATININE 0.9 mg/dL (0.55-1.3); PHOSPHOROUS 3.3 mg/dL (2.5-4.9)
[2024-07-29 09:00] LABS: BILIRUBIN,TOTAL 0.6 mg/dL (0.2-1); TOT PROT 5.8 g/dl (6.4-8.2)
[2024-07-30 08:33] LABS: HEMATOCRIT 25.6 % (32.4-45.2); HEMOGLOBIN 8.6 GM/dL (10.7-15.3); MCHC 33.5 g/dl (32.0-36.0); MEAN CELL VOLUME 89.3 fl (80-96); MEAN PLT VOLUME 9.5 fl (7.5-11.1); PLATELET COUNT 234 10^3/uL (134-434); RBC 2.86 M/mm3 (3.60-5.2); RDW 16.3 % (11.6-15.6); WHITE BLOOD COUNT 6.9 K/mm3 (4.0-10.0)
[2024-07-30 08:44] LABS: POTASSIUM 3.6 mmol/L (3.5-5.1)
[2024-07-30 08:49] LABS: CALCIUM 8.6 mg/dL (8.5-10.1)
[2024-07-30 08:50] LABS: MAGNESIUM 1.4 mg/dL (1.8-2.4)
[2024-07-30 08:53] LABS: CREATININE 1.2 mg/dL (0.55-1.3); PHOSPHOROUS 3.2 mg/dL (2.5-4.9)
[2024-07-30 08:54] LABS: BILIRUBIN,TOTAL 0.5 mg/dL (0.2-1); TOT PROT 6.1 g/dl (6.4-8.2)
[2024-07-30] MEDS: MAGNESIUM OXIDE 400 MG TABLET (FP) PO ONE (10:32)
[2024-07-30 22:45] VITALS: BP 142/65; PULSE 91; RESP 18; TEMP 99.1
== END 2024-07-30 22:15 | disposition home health service (06) | DRG 378 ==
LOC: JER 10:29 → JERBED 13:51 → J4S 07-24 22:57
PROVIDERS: ADMIT Internal Medicine; ATTEND Internal Medicine
PROC: 30233N1 Transfusion of Nonautologous Red Blood Cells into Peripheral Vein, Percutaneous Approach (ICD-10-PCS; 2024-07-23)
PROC: 0DB98ZX Excision of Duodenum, Via Natural or Artificial Opening Endoscopic, Diagnostic (ICD-10-PCS; 2024-07-27)
PROC: 0DB68ZX Excision of Stomach, Via Natural or Artificial Opening Endoscopic, Diagnostic (ICD-10-PCS; principal; 2024-07-27 12:00)
PROC: 0DBP8ZX Excision of Rectum, Via Natural or Artificial Opening Endoscopic, Diagnostic (ICD-10-PCS; 2024-07-29)
DX: K55.21 Angiodysplasia of colon with hemorrhage (principal); D62 Acute posthemorrhagic anemia; N17.9 Acute kidney failure, unspecified; N13.30 Unspecified hydronephrosis; E87.20 Acidosis, unspecified; E11.22 Type 2 diabetes mellitus with diabetic chronic kidney disease; N18.9 Chronic kidney disease, unspecified; R55 Syncope and collapse; R19.5 Other fecal abnormalities; E78.5 Hyperlipidemia, unspecified; K59.00 Constipation, unspecified; K21.9 Gastro-esophageal reflux disease without esophagitis; K62.1 Rectal polyp; K57.30 Diverticulosis of large intestine without perforation or abscess without bleeding
CPT/HCPCS: 0241U-QW; 36415; 36430; 70450-TC; 71045-TC-FY; 72126-TC; 74176-TC; 80048; 80053; 82010; 82272; 82607; 82728; 82746; 82803; 82962; 83036; 83540; 83550; 83605; 83735; 84100; 84484; 85025; 85027; 85045; 85610; 85651; 85730; 86140; 86850; 86900; 86901; 86922; 87040; 88305-TC; 88342-TC; 93005; 93010; 97116-GP; 97161-GP; 99285-25; J1756; P9058

== ENCOUNTER 2024-09-20 09:54 | Inpatient (IN) | payer OTHER ==
[2024-09-20 10:43] LABS: VENOUS BASE EXCESS -0.7 mmol/L (-2-2); VENOUS PCO2 42.4 mmHg (38-52); VENOUS PH 7.379 (7.310-7.410)
[2024-09-20 10:54] LABS: BASO % 0.3 % (0-2.0); HEMATOCRIT 35.4 % (32.4-45.2); HEMOGLOBIN 11.5 GM/dL (10.7-15.3); LYMPH % 7.1 % (8-40); MCH 27.4 pg (25.7-33.7); MCHC 32.4 g/dl (32.0-36.0); MEAN CELL VOLUME 84.7 fl (80-96); MEAN PLT VOLUME 10.4 fl (7.5-11.1); NEUT % 82.6 % (42.8-82.8); PLATELET COUNT 172 10^3/uL (134-434); RBC 4.18 M/mm3 (3.60-5.2); RDW 15.5 % (11.6-15.6); WHITE BLOOD COUNT 7.8 K/mm3 (4.0-10.0)
[2024-09-20 11:10] LABS: POTASSIUM 4.2 mmol/L (3.5-5.1)
[2024-09-20 11:13] LABS: ALBUMIN 3.3 g/dl (3.4-5.0); CALCIUM 9.2 mg/dL (8.5-10.1)
[2024-09-20 11:16] LABS: CREATININE 1.5 mg/dL (0.55-1.3)
[2024-09-20 11:18] LABS: BILIRUBIN,TOTAL 0.6 mg/dL (0.2-1)
[2024-09-20] MEDS ORDERED: ACETAMINOPHEN INJECTION 100 ML ONE (11:18)
[2024-09-20] MEDS ORDERED: PIPERACILLIN/TAZOB 4.5 GM 4.5 GM/100 ML BAG IVPB ONE (11:18)
[2024-09-20 11:22] LABS: INR 1.14 (0.83-1.09); PROTHROMBIN TIME (PATIENT) 12.8 SEC (9.7-13.0)
[2024-09-20] MEDS: ACETAMINOPHEN 1000 MG/100 ML BAG IVPB ONE (11:23)
[2024-09-20] MEDS: SODIUM CHLORIDE 0.9% 1000 ML INFUS.BAG IV STA (11:23)
[2024-09-20 11:53] LABS: EPI CELLS 17 /uL (0-25.1); HYALINE CASTS 1 /uL (0-3.1); URINE APPEARANCE TURBID; URINE BACTERIA >9,000 /uL (0-1359); URINE BILIRUBIN NEGATIVE (NEGATIVE); URINE COLOR YELLOW; URINE GLUCOSE (UA) NEGATIVE (NEGATIVE); URINE KETONE NEGATIVE (NEGATIVE); URINE LEUK ESTERASE 3+ (NEGATIVE); URINE NITRITE NEGATIVE (NEGATIVE); URINE PROTEIN 2+ (NEGATIVE); URINE UROBILINOGEN 0.2 mg/dL (0.2-1.0); URINE WBC 22549 /uL (0-25.8)
[2024-09-20] MEDS: PIPERACILLIN/TAZOBACTAM 4.5 GM VIAL IVPB ONE (12:07)
[2024-09-20] MEDS ORDERED: ACETAMINOPHEN 325 MG TABLET (FP) PO PRN (12:33)
[2024-09-20 12:43] LABS: URINE RBC 331 /uL (0-23.9); YEAST NOT PRESENT (NEGATIVE)
[2024-09-20] MEDS ORDERED: PATIENT'S OWN MEDICATION (NON-FORMULARY) (Polyethylene Glycol 3350 119 GM Bottle) PO PRN (14:56)
[2024-09-20 15:18] LABS: MAGNESIUM 1.6 mg/dL (1.8-2.4)
[2024-09-20] MEDS ORDERED: POLYETHYLENE GLYCOL (HEALTHYLAX) 3350 17 GM PACKET PO PRN (15:18)
[2024-09-20] MEDS: SODIUM CHLORIDE 1,000 ML IV SCH (17:00)
[2024-09-20] MEDS ORDERED: ACETAMINOPHEN 325 MG TABLET (FP) ONE (18:04)
[2024-09-20] MEDS: ACETAMINOPHEN 325 MG TABLET (FP) PO PRN (18:37)
[2024-09-20] MEDS ORDERED: ATORVASTATIN CA 10 MG TABLET (FP) ONE (21:07)
[2024-09-20] MEDS ORDERED: MAGNESIUM SULFATE IN WATER 2 GM/50 ML IVPB IVPB ONE (21:08)
[2024-09-20] MEDS ORDERED: PIPERACILLIN/TAZOB 3.375 GM 3.375 GM/50 ML BAG IVPB ONE (21:08)
[2024-09-20] MEDS ORDERED: GABAPENTIN 400 MG CAPSULE ONE (21:08)
[2024-09-20] MEDS: MAGNESIUM 2GM/50ML STERILE WATER IVPB IVPB ONE (21:24)
[2024-09-20] MEDS: DULoxetine HCL 30 MG CAPSULE.DR PO SCH (21:32)
[2024-09-20] MEDS: EZETIMIBE 10 MG TABLET (FP) PO SCH (21:32)
[2024-09-20] MEDS: GABAPENTIN 400 MG CAPSULE PO SCH (21:32)
[2024-09-20] MEDS: ATORVASTATIN CA 10 MG TABLET (FP) PO SCH (21:32)
[2024-09-20] MEDS: PIPERACILLIN/TAZOB 3.375 GM 50 ML IVPB SCH (21:35)
[2024-09-21 01:54] VITALS: BMI 30.8
[2024-09-21] MEDS: GABAPENTIN 300 MG CAPSULE PO SCH (06:20)
[2024-09-21 07:54] LABS: HEMATOCRIT 31.4 % (32.4-45.2); HEMOGLOBIN 10.1 GM/dL (10.7-15.3); MCH 27.4 pg (25.7-33.7); MCHC 32.2 g/dl (32.0-36.0); MEAN CELL VOLUME 84.9 fl (80-96); MEAN PLT VOLUME 9.9 fl (7.5-11.1); PLATELET COUNT 123 10^3/uL (134-434); RBC 3.69 M/mm3 (3.60-5.2); RDW 15.4 % (11.6-15.6); WHITE BLOOD COUNT 4.3 K/mm3 (4.0-10.0)
[2024-09-21] MEDS ORDERED: INSULIN (LEVEMIR) 100 UNITS/ML UNITS SQ ONE (08:00)
[2024-09-21 08:12] LABS: POTASSIUM 3.9 mmol/L (3.5-5.1)
[2024-09-21 08:18] LABS: ALBUMIN 2.8 g/dl (3.4-5.0); BLOOD UREA NITROGEN 37.9 mg/dL (7-18); CALCIUM 8.2 mg/dL (8.5-10.1); MAGNESIUM 1.8 mg/dL (1.8-2.4)
[2024-09-21 08:21] LABS: CREATININE 1.4 mg/dL (0.55-1.3)
[2024-09-21 08:22] LABS: PHOSPHOROUS 2.6 mg/dL (2.5-4.9)
[2024-09-21 08:23] LABS: BILIRUBIN,TOTAL 0.4 mg/dL (0.2-1); TOT PROT 5.8 g/dl (6.4-8.2)
[2024-09-21 09:20] LABS: ANISOCYTOSIS 0; MACROCYTOSIS 0
[2024-09-21] MEDS ORDERED: HYDROCHLOROTHIAZIDE 25 MG TABLET (FP) PO SCH (10:00)
[2024-09-21] MEDS ORDERED: PATIENT'S OWN MEDICATION (NON-FORMULARY) (Ubidecarenone [Co Q-10] 200 MG Capsule) PO SCH (10:00)
[2024-09-21] MEDS ORDERED: CEFTRIAXONE 1 G/50 ML PREMIX 50 ML IVPB SCH (10:00)
[2024-09-21] MEDS: LOSARTAN POTASSIUM 50 MG TABLET PO SCH (10:36)
[2024-09-21] MEDS: PANTOPRAZOLE 40 MG TABLET PO SCH (10:36)
[2024-09-21] MEDS: POLYETHYLENE GLYCOL (HEALTHYLAX) 3350 17 GM PACKET PO SCH ×2 (10:36→21:03)
[2024-09-21] MEDS: ENOXAPARIN NA (PORCINE) 40 MG/0.4 ML DISP.SYRIN SQ SCH (10:36)
[2024-09-21] MEDS: INSULIN (LEVEMIR) 100 UNITS/ML UNITS SQ ONE (10:44)
[2024-09-21] MEDS: INSULIN ASPART SLIDING SCALE (NOVOLOG) 1 VIAL SQ SCH (12:53)
[2024-09-21] MEDS: LACTULOSE 20 GM/30 ML UDC (FOR ORAL USE ONLY) PO ONE (14:45)
[2024-09-21] MEDS ORDERED: INSULIN ASPART SLIDING SCALE (NOVOLOG) 1 VIAL SQ SCH (16:30)
[2024-09-21] MEDS ORDERED: ACETAMINOPHEN 325 MG TABLET (FP) PO PRN (17:52)
[2024-09-21] MEDS: INSULIN (LEVEMIR) 100 UNITS/ML UNITS SQ SCH (21:03)
[2024-09-22] MEDS: INSULIN (LEVEMIR) 100 UNITS/ML UNITS SQ SCH ×2 (06:07→22:44)
[2024-09-22 08:16] LABS: POTASSIUM 3.9 mmol/L (3.5-5.1)
[2024-09-22 08:17] LABS: HEMATOCRIT 31.2 % (32.4-45.2); MCH 26.9 pg (25.7-33.7); MCHC 32.1 g/dl (32.0-36.0); MEAN CELL VOLUME 84.1 fl (80-96); MEAN PLT VOLUME 10.5 fl (7.5-11.1); PLATELET COUNT 117 10^3/uL (134-434); RBC 3.71 M/mm3 (3.60-5.2); RDW 15.3 % (11.6-15.6); WHITE BLOOD COUNT 4.4 K/mm3 (4.0-10.0)
[2024-09-22 08:20] LABS: ALBUMIN 2.8 g/dl (3.4-5.0); BLOOD UREA NITROGEN 23.8 mg/dL (7-18); CALCIUM 8.7 mg/dL (8.5-10.1)
[2024-09-22 08:21] LABS: MAGNESIUM 1.5 mg/dL (1.8-2.4)
[2024-09-22 08:23] LABS: CREATININE 1.1 mg/dL (0.55-1.3)
[2024-09-22 08:24] LABS: PHOSPHOROUS 2.2 mg/dL (2.5-4.9)
[2024-09-22 08:25] LABS: BILIRUBIN,TOTAL 0.3 mg/dL (0.2-1); TOT PROT 5.8 g/dl (6.4-8.2)
[2024-09-22 08:51] LABS: ANISOCYTOSIS 0; MACROCYTOSIS 0
[2024-09-22] MEDS ORDERED: MAGNESIUM OXIDE 400 MG TABLET (FP) PO ONE (19:45)
[2024-09-22] MEDS: MAGNESIUM OXIDE 400 MG TABLET (FP) PO ONE (22:43)
[2024-09-23] MEDS: INSULIN (LEVEMIR) 100 UNITS/ML UNITS SQ SCH ×2 (07:06→21:26)
[2024-09-23 07:44] LABS: BASO % 0.6 % (0-2.0); EOS % 4.4 % (0-4.5); HEMATOCRIT 29.2 % (32.4-45.2); HEMOGLOBIN 9.7 GM/dL (10.7-15.3); LYMPH % 33.8 % (8-40); MCH 27.4 pg (25.7-33.7); MCHC 33.2 g/dl (32.0-36.0); MEAN CELL VOLUME 82.7 fl (80-96); MEAN PLT VOLUME 9.9 fl (7.5-11.1); MONO % 14.5 % (3.8-10.2); NEUT % 46.7 % (42.8-82.8); PLATELET COUNT 120 10^3/uL (134-434); RBC 3.53 M/mm3 (3.60-5.2); RDW 15.6 % (11.6-15.6); WHITE BLOOD COUNT 5.1 K/mm3 (4.0-10.0)
[2024-09-23 08:02] LABS: POTASSIUM 4.1 mmol/L (3.5-5.1)
[2024-09-23 08:26] LABS: ALBUMIN 2.7 g/dl (3.4-5.0); BLOOD UREA NITROGEN 19.4 mg/dL (7-18); MAGNESIUM 1.5 mg/dL (1.8-2.4)
[2024-09-23 08:30] LABS: BILIRUBIN,TOTAL 0.3 mg/dL (0.2-1); PHOSPHOROUS 2.5 mg/dL (2.5-4.9)
[2024-09-23 08:31] LABS: TOT PROT 5.9 g/dl (6.4-8.2)
[2024-09-23] MEDS: PIPERACILLIN/TAZOB 3.375 GM 50 ML IVPB SCH (11:20)
[2024-09-23] MEDS: ERTAPENEM SODIUM 1 GM in SODIUM CHLORIDE 50 ML IVPB SCH (13:40)
[2024-09-23] MEDS: PIPERACILLIN/TAZOB 3.375 GM 3.375 GM in DEXTROSE 5%-WATER - 50 ML IVPB SCH (21:28)
[2024-09-24] MEDS: INSULIN (LEVEMIR) 100 UNITS/ML UNITS SQ SCH (06:15)
[2024-09-24 08:32] LABS: BASO % 0.8 % (0-2.0); EOS % 3.7 % (0-4.5); HEMATOCRIT 29.9 % (32.4-45.2); HEMOGLOBIN 9.8 GM/dL (10.7-15.3); LYMPH % 34.9 % (8-40); MCH 27.4 pg (25.7-33.7); MCHC 32.9 g/dl (32.0-36.0); MEAN CELL VOLUME 83.3 fl (80-96); MEAN PLT VOLUME 10.2 fl (7.5-11.1); MONO % 11.8 % (3.8-10.2); NEUT % 48.8 % (42.8-82.8); PLATELET COUNT 143 10^3/uL (134-434); RBC 3.59 M/mm3 (3.60-5.2); RDW 15.4 % (11.6-15.6)
[2024-09-24 08:40] LABS: POTASSIUM 4.4 mmol/L (3.5-5.1)
[2024-09-24 08:45] LABS: ALBUMIN 2.9 g/dl (3.4-5.0); BLOOD UREA NITROGEN 23.5 mg/dL (7-18); CALCIUM 8.9 mg/dL (8.5-10.1); MAGNESIUM 1.4 mg/dL (1.8-2.4)
[2024-09-24 08:48] LABS: CREATININE 1.1 mg/dL (0.55-1.3); PHOSPHOROUS 3.4 mg/dL (2.5-4.9)
[2024-09-24 08:50] LABS: BILIRUBIN,TOTAL 0.2 mg/dL (0.2-1); TOT PROT 6.2 g/dl (6.4-8.2)
[2024-09-24] MEDS: MAGNESIUM 2GM/50ML STERILE WATER IVPB IVPB ONE (17:23)
[2024-09-25] MEDS ORDERED: MAGNESIUM SULF 50% (8.12 MEQ/2 ML-1 GM VIAL) IVPB ONE (14:15)
[2024-09-25] MEDS: MAGNESIUM 2GM/50ML STERILE WATER IVPB IVPB ONE (14:24)
[2024-09-26 15:46] VITALS: RESP 18
[2024-09-26 18:18] VITALS: BP 137/71; PULSE 81; TEMP 98.9
== END 2024-09-26 19:30 | DRG 871 ==
LOC: JER 09:54 → JERBED 12:09 → J4W 23:54
PROVIDERS: ADMIT Internal Medicine; ATTEND Internal Medicine
PROC: 02HV33Z Insertion of Infusion Device into Superior Vena Cava, Percutaneous Approach (ICD-10-PCS; principal; 2024-09-23)
PROC: B518ZZA Fluoroscopy of Superior Vena Cava, Guidance (ICD-10-PCS; 2024-09-23)
DX: A41.89 Other specified sepsis (principal); G93.41 Metabolic encephalopathy; N12 Tubulo-interstitial nephritis, not specified as acute or chronic; N17.9 Acute kidney failure, unspecified; N13.30 Unspecified hydronephrosis; Z16.12 Extended spectrum beta lactamase (ESBL) resistance; E87.1 Hypo-osmolality and hyponatremia; I10 Essential (primary) hypertension; E11.9 Type 2 diabetes mellitus without complications; E78.5 Hyperlipidemia, unspecified; K21.9 Gastro-esophageal reflux disease without esophagitis; R15.9 Full incontinence of feces; K59.00 Constipation, unspecified; R32 Unspecified urinary incontinence; D69.6 Thrombocytopenia, unspecified
CPT/HCPCS: 0241U-QW; 36415; 36569; 71045-TC-FY; 74176-TC; 80053; 81003; 82803; 82962; 83605; 83735; 84100; 84484; 85025; 85610; 85730; 86850; 86900; 86901; 87040; 87086; 87186; 93005; 93010; 97116-GP; 97162-GP; 99285-25; J0131